=== PATIENT | female | born 1960 | race Caucasian/White ===

== ENCOUNTER → 2016-04-04 | Outpatient (CLI) | payer BC ==
[2016-04-04 09:23] VITALS: BMI 34.5
== END | disposition home or self-care (01) ==
LOC: MNTWWP 08:57
PROVIDERS: ATTEND Family Medicine
DX: Z71.3 Dietary counseling and surveillance (principal); R63.5 Abnormal weight gain

== ENCOUNTER → 2016-04-10 | Outpatient (CLI) | payer BC ==
--- NOTE | 2016-04-11 12:02 | MM ---
Reason for exam: screening (asymptomatic). Last mammogram was performed 1 year ago. History: Patient is postmenopausal. Family history of premenopausal breast cancer in maternal cousin at age 42 and breast cancer in maternal grandmother at age 60. Taking estrogen for 1 year 3 months beginning at age 48. Physical Findings: A clinical breast exam by your physician is recommended on an annual basis and results should be correlated with mammographic findings. MG Screening Mammo w CAD Bilateral CC and MLO view(s) were taken. Prior study comparison: April 02, 2015, bilateral MG screening mammo w CAD. February 11, 2014, bilateral MG screening mammo w CAD. January 22, 2013, bilateral digital screening mammo w/CAD. January 10, 2012, bilateral digital screening mammo w/CAD. There are scattered fibroglandular densities. No significant changes when compared with prior studies. ASSESSMENT: Negative, BI-RAD 1 RECOMMENDATION: Routine screening mammogram of both breasts in 1 year.
== END | disposition home or self-care (01) ==
LOC: RADMAMWWP 08:42
PROVIDERS: ATTEND Obstetrics & Gynecology
DX: Z12.31 Encounter for screening mammogram for malignant neoplasm of breast (principal)

== ENCOUNTER → 2016-09-13 | Outpatient (CLI) | payer BC ==
[2016-09-13 09:23] LABS: Basophils % (A) 1 %; CH 32.7; Eosinophils # (A) 0.1 k/uL (0-0.7); Eosinophils % (A) 2 %; HCT 45.8 % (34.0-46.0); HDW 2.58; HGB 15.7 gm/dL (11.4-16.0); Luc # (Auto) 0.15; Luc % (Auto) 2; Lymphocytes # (A) 2.5 k/uL (1.0-4.8); Lymphocytes % (A) 40 %; MCHC 34.2 g/dL (31.0-37.0); MCV 96.6 fL (80.0-100.0); Mean Platelet Volume 6.4; Monocytes # (A) 0.3 k/uL (0-1.0); Monocytes % (A) 5 %; Neutrophils # (A) 3.1 k/uL (1.3-7.7); Neutrophils % (A) 50 %; RBC 4.74 m/uL (3.80-5.40); RDW 12.1 % (11.5-15.5); WBC 6.2 k/uL (3.8-10.6); WBC (Perox) 6.12
[2016-09-13 09:30] LABS: ALT 64 U/L (9-52); AST 40 U/L (14-36); Alkaline Phosphatase 81 U/L (38-126); Anion Gap 10 mmol/L; Blood Urea Nitrogen 17 mg/dL (7-17); Carbon Dioxide 29 mmol/L (22-30); Chloride 104 mmol/L (98-107); Cholesterol 195 mg/dL (<200); Glucose 81 mg/dL (74-99); HDL Cholesterol 60 mg/dL (40-60); Non-African American GFR(MDRD) >60 (>60 ml/min/1.73 sqM); Potassium 4.7 mmol/L (3.5-5.1); Sodium 143 mmol/L (137-145); Total Bilirubin 0.7 mg/dL (0.2-1.3); Total Protein 7.4 g/dL (6.3-8.2)
== END | disposition home or self-care (01) ==
LOC: LABWHC1 08:50
PROVIDERS: ATTEND Family Medicine
DX: K57.32 Diverticulitis of large intestine without perforation or abscess without bleeding (principal); F33.41 Major depressive disorder, recurrent, in partial remission; Z68.35 Body mass index [BMI] 35.0-35.9, adult; S20.219A Contusion of unspecified front wall of thorax, initial encounter; Y99.9 Unspecified external cause status
CPT/HCPCS: 36415; 80053; 80061; 84439; 84443; 85025

== ENCOUNTER 2017-05-16 07:37 | Emergency (ER) | payer BC ==
--- NOTE | 2017-05-16 08:10 | ED ---
Extremity Problem HPI - General Chief complaint: Extremity Problem,Nontraumatic Stated complaint: poss blood clot left leg Time Seen by Provider: 05/16/17 07:52 Source: patient, RN notes reviewed Mode of arrival: ambulatory Limitations: no limitations - History of Present Illness Initial comments: 56-year-old female presents emergency Department chief complaint of left leg pain. Patient states that she had an ablation of her varicose veins at the beginning of April. Patient states that she started developing worsening pain in the middle April and was seen at [facility] in which states she was found to have an extensive DVT. Patient states that vascular surgeon Dr. Simpson removed the clot and placed a stent. Patient states she was placed in [facility] after this. She has an appointment with Dr. Salazar tomorrow and appointment with Dr. Lopez to be worked up for clotting disorders. Patient states that she went back to work yesterday and woke up with pain proximal to 5 hours ago that was unbearable and not alleviated with [place] to her lower leg. She states she has no paresthesias. Denies any discoloration other than the ecchymosis which has been present since her surgery. - Related Data Home Medications Medication Instructions Recorded Confirmed Cyclobenzaprine [Flexeril] 10 mg PO TID PRN 07/16/13 07/16/13 Ibuprofen [Motrin] 800 mg PO Q12HR PRN 07/16/13 07/16/13 LORazepam [Ativan] 0.5 mg PO TID PRN 07/16/13 07/16/13 Loratadine [Claritin] 10 mg PO DAILY 07/16/13 07/16/13 Previous Rx's Medication Instructions Recorded Cyclobenzaprine [Flexeril] 10 mg PO TID #20 tablet 07/16/13 Docusate [Colace] 100 mg PO DAILY #30 capsule 07/16/13 Hydrocodone/Acetaminophen 1 each PO Q4HR PRN #20 tablet 07/16/13 [Hydrocodone/Acetaminophen 5-325] Ibuprofen [Motrin] 800 mg PO Q6HR PRN #20 tab 10/18/15 Allergies Allergy/AdvReac Type Severity Reaction Status Date / Time loracarbef [From Lorabid] Allergy Anaphylaxis Verified 05/16/17 07:48 Penicillins Allergy Unknown Verified 05/16/17 07:48 shellfish derived Allergy Swelling Verified 05/16/17 07:48 Review of Systems ROS Statement: Those systems with pertinent positive or pertinent negative responses have been documented in the HPI. ROS Other: All systems not noted in ROS Statement are negative. Past Medical History Past Medical History: Deep Vein Thrombosis (DVT) Additional Past Medical History / Comment(s): back pain History of Any Multi-Drug Resistant Organisms: None Reported Past Surgical History: Back Surgery, Hysterectomy, Tonsillectomy Past Psychological History: No Psychological Hx Reported Smoking Status: Current some day smoker Past Alcohol Use History: Occasional Past Drug Use History: None Reported General Exam Limitations: no limitations General appearance: alert, in no apparent distress Head exam: Present: atraumatic, normocephalic, normal inspection Neck exam: Present: normal inspection. Absent: tenderness, meningismus, lymphadenopathy Respiratory exam: Present: normal lung sounds bilaterally. Absent: respiratory distress, wheezes, rales, rhonchi, stridor Cardiovascular Exam: Present: regular rate, normal rhythm, normal heart sounds. Absent: systolic murmur, diastolic murmur, rubs, gallop, clicks GI/Abdominal exam: Present: soft, normal bowel sounds. Absent: distended, tenderness, guarding, rebound, rigid Extremities exam: Present: other (Left lower extremity there is extensive ecchymosis which appears old from the knee to the foot there is tenderness to the mid calf to the ankle region and mild swelling noted no erythema no warmth there equal pedal pulses bilaterally) Skin exam: Present: warm, dry, intact, normal color. Absent: rash Course Vital Signs 05/16/17 07:41 Temperature 98.5 F Pulse Rate 88 Respiratory 18 Rate Blood Pressure 127/82 O2 Sat by Pulse 99 Oximetry Medical Decision Making - Medical Decision Making 56-year-old female presents from for left leg pain. Patient had recent surgery. Patient's ultrasound shows superficial thrombophlebitis. Patient is on WILL continue. Patient advised to elevate, depression stockings, warm compresses. Patient follow with Dr. Salazar tomorrow at her scheduled appointment. Patient had equal pulses and no concerns for arterial issues. Disposition Clinical Impression: Superficial thrombophlebitis of lower extremity Disposition: HOME SELF-CARE Condition: Stable Instructions: Superficial Thrombophlebitis (ED) Additional Instructions: Please return to the Emergency Department if symptoms worsen or any other concerns. Referrals: Iain Lima MD [Primary Care Provider] - 1-2 days Adams Salazar DO [Doctor of Osteopathic Medicine] - 1-2 days
--- NOTE | 2017-05-16 09:14 | US ---
EXAMINATION TYPE: US venous doppler duplex LE LT DATE OF EXAM: 05/16/2017 8:44 AM COMPARISON: None CLINICAL HISTORY: 56-year-old female with left leg pain, recent diagnosis of DVT left leg last week a t different facility SIDE PERFORMED: Left TECHNIQUE: The lower extremity deep venous system is examined utilizing real time linear array sonog luciana with graded compression, doppler sonography and color-flow sonography. FINDINGS: VESSELS IMAGED: External Iliac Vein (EIV) Common Femoral Vein Deep Femoral Vein Greater Saphenous Vein * Femoral Vein Popliteal Vein Small Saphenous Vein * Proximal Calf Veins (* superficial vessels) Left Leg: Thrombus within left GSV extending slightly into left CFV/ Thrombus also visualized within left small saph vein IMPRESSION: SVT involving the left greater saphenous vein and small saphenous vein. GSV thrombus minimally extend s into the left common femoral vein. Otherwise, no DVT seen from the groin to the upper calf.
[2017-05-16 09:51] VITALS: BP 151/85; PULSE 69; RESP 16; TEMP 98
== END 2017-05-16 09:50 | disposition home or self-care (01) ==
LOC: EC 07:37
DX: I80.02 Phlebitis and thrombophlebitis of superficial vessels of left lower extremity (principal); F17.200 Nicotine dependence, unspecified, uncomplicated; Z88.0 Allergy status to penicillin; Z88.1 Allergy status to other antibiotic agents; Z91.013 Allergy to seafood; Z79.01 Long term (current) use of anticoagulants; Z79.899 Other long term (current) drug therapy
CPT/HCPCS: 99283

== ENCOUNTER 2017-06-16 13:33 | Emergency (ER) | payer BC ==
[2017-06-16] MEDS ORDERED: HYDROcodone/APAP 5-325MG 1 EACH TAB PO STA (14:04)
--- NOTE | 2017-06-16 14:48 | ED ---
General Adult HPI - General Chief complaint: Extremity Problem,Nontraumatic Stated complaint: DVT L leg? Time Seen by Provider: 06/16/17 13:53 Source: patient, RN notes reviewed, old records reviewed Mode of arrival: wheelchair Limitations: no limitations - History of Present Illness Initial comments: This is a 56-year-old female to the ER for evaluation of left lower Shorty pain. Patient has positive history of DVT, history of blood clots, patient is on blood thinners taking it as directed. states she had blood clot evacuated about 2 months ago secondary to severe blood clot in left lower extremity. She also has stent placed in her femoral vein. Patient denies any other injury or trauma. She states she's had some stress being a today but has had increasing pain in her left leg since last night. No significant swelling. - Related Data Home Medications Medication Instructions Recorded Confirmed LORazepam [Ativan] 0.5 mg PO BID 07/16/13 06/16/17 Apixaban [Eliquis] 5 mg PO BID 05/16/17 06/16/17 Ascorbic Acid [Vitamin C] 500 mg PO HS 05/16/17 06/16/17 Biotin 5 mg PO HS 05/16/17 06/16/17 Clopidogrel [Plavix] 75 mg PO DAILY 05/16/17 06/16/17 Docusate [Colace] 200 mg PO HS 05/16/17 06/16/17 Hydrocodone/Acetaminophen 1 tab PO Q6H PRN 05/16/17 06/16/17 [Hydrocodone/Acetaminophen 5-325] Multivitamins, Thera [Multivitamin 1 tab PO HS 05/16/17 06/16/17 (formulary)] Psyllium Husk (with Sugar) 5 ml PO DAILY 05/16/17 06/16/17 [Metamucil Powder] Vitamin C/Biotin [Hair, Skin and 1 tab PO HS 05/16/17 06/16/17 Nails] buPROPion XL [Wellbutrin Xl] 150 mg PO BID 05/16/17 06/16/17 Allergies Allergy/AdvReac Type Severity Reaction Status Date / Time loracarbef [From Lorabid] Allergy Anaphylaxis Verified 06/16/17 13:57 Penicillins Allergy Unknown Verified 06/16/17 13:57 shellfish derived Allergy Swelling Verified 06/16/17 13:57 Review of Systems ROS Statement: Those systems with pertinent positive or pertinent negative responses have been documented in the HPI. ROS Other: All systems not noted in ROS Statement are negative. Past Medical History Past Medical History: Deep Vein Thrombosis (DVT) Additional Past Medical History / Comment(s): back pain History of Any Multi-Drug Resistant Organisms: None Reported Past Surgical History: Back Surgery, Hysterectomy, Tonsillectomy Past Psychological History: No Psychological Hx Reported Smoking Status: Current some day smoker Past Alcohol Use History: Occasional Past Drug Use History: None Reported General Exam Limitations: no limitations General appearance: alert, in no apparent distress Head exam: Present: atraumatic, normocephalic, normal inspection Eye exam: Present: normal appearance, PERRL, EOMI. Absent: scleral icterus, conjunctival injection, periorbital swelling ENT exam: Present: normal exam, mucous membranes moist Neck exam: Present: normal inspection. Absent: tenderness, meningismus, lymphadenopathy Respiratory exam: Present: normal lung sounds bilaterally. Absent: respiratory distress, wheezes, rales, rhonchi, stridor Cardiovascular Exam: Present: regular rate, normal rhythm, normal heart sounds. Absent: systolic murmur, diastolic murmur, rubs, gallop, clicks GI/Abdominal exam: Present: soft, normal bowel sounds. Absent: distended, tenderness, guarding, rebound, rigid Extremities exam: Present: normal inspection, full ROM, normal capillary refill. Absent: tenderness, pedal edema, joint swelling, calf tenderness Back exam: Present: normal inspection Neurological exam: Present: alert, oriented X3, CN II-XII intact Psychiatric exam: Present: normal affect, normal mood Skin exam: Present: warm, dry, intact, normal color. Absent: rash Course Vital Signs 06/16/17 13:54 Temperature 97.0 F L Pulse Rate 90 Respiratory 18 Rate Blood Pressure 121/67 O2 Sat by Pulse 96 Oximetry - Reevaluation(s) Reevaluation #1: 06/16/17 14:48 Medical records reviewed, pain is more improved Medical Decision Making - Medical Decision Making 56 female the ER with left lower Shorty pain. Patient has positive left leg pain, negative for DVT, patient encouraged to continue blood thinners and will be discharged home - Radiology Data Radiology results: report reviewed (Ultrasound negative for DVT), image reviewed Disposition Clinical Impression: Left leg pain Disposition: HOME SELF-CARE Condition: Good Instructions: Leg Pain (ED) Is patient prescribed a controlled substance at d/c from ED?: No Referrals: Iain Lima MD [Primary Care Provider] - 1-2 days
--- NOTE | 2017-06-16 15:24 | US ---
EXAMINATION TYPE: US venous doppler duplex LE LT DATE OF EXAM: 06/16/2017 2:52 PM COMPARISON: NONE CLINICAL HISTORY: pain. Had chronic blood clot removed from left leg per pt with stent placed last mo nth. Pt currently has stent still per pt and taking 2 blood thinners. SIDE PERFORMED: Left TECHNIQUE: The lower extremity deep venous system is examined utilizing real time linear array sonog luciana with graded compression, doppler sonography and color-flow sonography. VESSELS IMAGED: External Iliac Vein (EIV) Common Femoral Vein Deep Femoral Vein Greater Saphenous Vein * Femoral Vein Popliteal Vein Small Saphenous Vein * Proximal Calf Veins (* superficial vessels) Grayscale, color doppler, spectral doppler imaging performed of the deep veins of the lower extremity . There is normal flow, compressibility, vascular waveforms. IMPRESSION: Left Leg: Negative for DVT
[2017-06-16] MEDS ORDERED: RX INFO: IV CONTRAST WAS GIVEN 1 EACH MISC MISCELLANE PRN (15:33)
[2017-06-16] MEDS ORDERED: SODIUM CHLORIDE 0.9% 1,000 ML IV STA (15:33)
[2017-06-16] MEDS ORDERED: MORPHINE SULFATE 4 MG/ML SYRINGE IV STA (15:33)
[2017-06-16 16:00] LABS: Appearance,Urine Clear (Clear); Bilirubin,Urine Negative (Negative); Blood,Urine Negative (Negative); Color,Urine Yellow; Glucose,Urine (UA) Negative (Negative); Ketones,Urine Negative (Negative); Leukocyte Esterase,Urine Negative (Negative); Nitrite,Urine Negative (Negative); PH, Urine 5.5 (5.0-8.0); Protein,Urine Negative (Negative); Specific Gravity,Urine 1.012 (1.001-1.035); Urobilinogen,Urine <2.0 mg/dL (<2.0)
[2017-06-16 16:01] LABS: Basophils % (A) 0 %; Eosinophils # (A) 0.1 k/uL (0-0.7); Eosinophils % (A) 1 %; HCT 43.1 % (34.0-46.0); HGB 14.4 gm/dL (11.4-16.0); Lymphocytes % (A) 31 %; MCH 31.4 pg (25.0-35.0); MCHC 33.4 g/dL (31.0-37.0); MCV 93.9 fL (80.0-100.0); Mean Platelet Volume 6.5; Monocytes # (A) 0.4 k/uL (0-1.0); Monocytes % (A) 6 %; Neutrophils # (A) 3.9 k/uL (1.3-7.7); Neutrophils % (A) 61 %; Platelet Count 354 k/uL (150-450); RBC 4.59 m/uL (3.80-5.40); RDW 12.3 % (11.5-15.5); WBC 6.4 k/uL (3.8-10.6)
[2017-06-16 16:18] LABS: Albumin 4.4 g/dL (3.5-5.0); Calcium 9.5 mg/dL (8.4-10.2); Potassium 3.7 mmol/L (3.5-5.1); Total Bilirubin 0.4 mg/dL (0.2-1.3); Total Protein 6.9 g/dL (6.3-8.2)
--- NOTE | 2017-06-16 17:19 | CT ---
EXAMINATION TYPE: CT abdomen pelvis w con DATE OF EXAM: 06/16/2017 COMPARISON: NONE HISTORY: abdominal pain CONTRAST: 100ml/mnd319 FINDINGS: LUNG BASES-: No visible nodule. No infiltrate. LIVER/GB: No calcified gallstones. No space occupying hepatic lesion. Biliary tree is of normal ca liber. PANCREAS: No inflammation. No distinct mass. SPLEEN: No splenic enlargement. No lesion seen. ADRENALS: No nodule. No thickening. KIDNEYS/BLADDER: No hydronephrosis. No nephrolithiasis. No distinct renal mass. Urinary bladder g rossly unremarkable. BOWEL: Normal appendix. Normal bowel caliber. No inflammation. Sigmoid diverticulosis without diver ticulitis. GENITAL ORGANS: Hysterectomy changes noted. No evidence for ovarian mass. LYMPH NODES: No greater than 1cm abdominal or pelvic lymph nodes are appreciated. AORTA: No significant abnormality. OSSEOUS STRUCTURES: Postoperative changes lumbar spine. OTHER: Left common iliac vein stent. IMPRESSION: 1. No acute findings to account for the patient's symptoms.
[2017-06-16 17:45] VITALS: BP 128/67; PULSE 80; RESP 20; TEMP 97.5
== END 2017-06-16 17:46 | disposition home or self-care (01) ==
LOC: EC 13:33
DX: M79.605 Pain in left leg (principal); F17.200 Nicotine dependence, unspecified, uncomplicated; Z79.01 Long term (current) use of anticoagulants; Z79.02 Long term (current) use of antithrombotics/antiplatelets; Z79.899 Other long term (current) drug therapy; Z88.0 Allergy status to penicillin; Z88.1 Allergy status to other antibiotic agents; Z91.013 Allergy to seafood; Z86.718 Personal history of other venous thrombosis and embolism; Z87.39 Personal history of other diseases of the musculoskeletal system and connective tissue; Z95.820 Peripheral vascular angioplasty status with implants and grafts; Z98.890 Other specified postprocedural states
CPT/HCPCS: 36415; 80053; 82150; 83605; 83690; 85025; 81003; 87086; 93971; 74177; 99284; J2270; Q9967

== ENCOUNTER → 2017-07-25 | Outpatient (CLI) | payer BC ==
--- NOTE | 2017-07-27 10:48 | MM ---
Reason for exam: screening (asymptomatic). Last mammogram was performed 1 year and 3 months ago. History: Patient is postmenopausal. Family history of premenopausal breast cancer in maternal cousin at age 42 and breast cancer in maternal grandmother at age 60. Taking estrogen for 1 year 3 months beginning at age 48. Physical Findings: A clinical breast exam by your physician is recommended on an annual basis and results should be correlated with mammographic findings. MG Screening Mammo w CAD Bilateral CC and MLO view(s) were taken. Prior study comparison: April 10, 2016, bilateral MG screening mammo w CAD. April 02, 2015, bilateral MG screening mammo w CAD. The breast tissue is heterogeneously dense. This may lower the sensitivity of mammography. No suspicious abnormality. No significant changes when compared with prior studies. ASSESSMENT: Negative, BI-RAD 1 RECOMMENDATION: Routine screening mammogram of both breasts in 1 year.
== END | disposition home or self-care (01) ==
LOC: RADMAMWWP 16:24
PROVIDERS: ATTEND Obstetrics & Gynecology
DX: Z12.31 Encounter for screening mammogram for malignant neoplasm of breast (principal); Z80.3 Family history of malignant neoplasm of breast
CPT/HCPCS: 77067

== ENCOUNTER → 2017-10-24 | Outpatient (CLI) | payer BC | END | disposition home or self-care (01) | LOC: LABWHC1 10:31 | PROVIDERS: ATTEND Otolaryngology | DX: J30.89 Other allergic rhinitis (principal) | CPT/HCPCS: 36415 ==

== ENCOUNTER 2018-06-17 09:20 | Emergency (ER) | payer BC ==
[2018-06-17] MEDS ORDERED: SODIUM CHLORIDE 0.9% 1,000 ML IV STA (09:45)
[2018-06-17] MEDS ORDERED: DIPHENOX-ATROP 2.5-0.025 MG 1 EACH TAB PO STA (09:45)
[2018-06-17] MEDS ORDERED: ONDANSETRON 4 MG/2 ML VIAL IVP STA (09:45)
--- NOTE | 2018-06-17 09:52 | ED ---
General Adult HPI - General Chief complaint: Nausea/Vomiting/Diarrhea Stated complaint: dehydrated Time Seen by Provider: 06/17/18 09:30 Source: patient, RN notes reviewed Mode of arrival: ambulatory Limitations: no limitations - History of Present Illness Initial comments: This a 57-year-old female presents emergency Department complaining that she has been having nausea vomiting diarrhea since Sunday. Patient states she hasn't vomited since Sunday night but she continues to have diarrhea. Patient states she feels that she is dehydrated. Patient states she was able to drink fluids however. Patient states she has occasional abdominal cramping but has no abdominal pain currently. Patient states she's felt hot but does not feel hot currently. Patient denies any dysuria hematuria urinary frequency. Patient denies any back pain. Patient denies any chest pain difficulty breathing shortness of breath. - Related Data Home Medications Medication Instructions Recorded Confirmed LORazepam [Ativan] 0.5 mg PO BID PRN 07/16/13 06/17/18 Ascorbic Acid [Vitamin C] 500 mg PO HS 05/16/17 06/17/18 Biotin 5 mg PO HS 05/16/17 06/17/18 Docusate [Colace] 200 mg PO HS 05/16/17 06/17/18 Multivitamins, Thera [Multivitamin 1 tab PO HS 05/16/17 06/17/18 (formulary)] Psyllium Husk (with Sugar) 5 ml PO DAILY 05/16/17 06/17/18 [Metamucil Powder] Vitamin C/Biotin [Hair, Skin and 1 tab PO HS 05/16/17 06/17/18 Nails] buPROPion XL [Wellbutrin Xl] 150 mg PO BID 05/16/17 06/17/18 Aspirin EC [Ecotrin] 325 mg PO DAILY 06/17/18 06/17/18 Fexofenadine/Pseudoephedrine 1 tab PO DAILY 06/17/18 06/17/18 [Vee-D 24 Hour Tablet] Folic Acid 1 mg PO DAILY 06/17/18 06/17/18 Vitamin B Complex 1 cap PO DAILY 06/17/18 06/17/18 Allergies Allergy/AdvReac Type Severity Reaction Status Date / Time Iodinated Contrast- Oral and Allergy Unknown Verified 06/17/18 09:54 IV Dye loracarbef [From Lorabid] Allergy Anaphylaxis Verified 06/17/18 09:54 Penicillins Allergy Unknown Verified 06/17/18 09:54 shellfish derived Allergy Swelling Verified 06/17/18 09:54 Review of Systems ROS Statement: Those systems with pertinent positive or pertinent negative responses have been documented in the HPI. ROS Other: All systems not noted in ROS Statement are negative. Past Medical History Past Medical History: Deep Vein Thrombosis (DVT) Additional Past Medical History / Comment(s): back pain History of Any Multi-Drug Resistant Organisms: None Reported Past Surgical History: Back Surgery, Hysterectomy, Tonsillectomy Past Psychological History: No Psychological Hx Reported Smoking Status: Current some day smoker Past Alcohol Use History: Occasional Past Drug Use History: None Reported General Exam - General Exam Comments Initial Comments: GENERAL: Patient is well-developed and well-nourished. Patient is nontoxic and well- hydrated and is in mild distress. ENT: Neck is soft and supple. No significant lymphadenopathy is noted. Oropharynx is clear. Moist mucous membranes. Neck has full range of motion without eliciting any pain. EYES: The sclera were anicteric and conjunctiva were pink and moist. Extraocular movements were intact and pupils were equal round and reactive to light. Eyelids were unremarkable. PULMONARY: Unlabored respirations. Good breath sounds bilaterally. No audible rales rhonchi or wheezing was noted. CARDIOVASCULAR: There is a regular rate and rhythm without any murmurs gallops or rubs. ABDOMEN: Soft and nontender with normal bowel sounds. No palpable organomegaly was noted. There is no palpable pulsatile mass. SKIN: Skin is clear with no lesions or rashes and otherwise unremarkable. NEUROLOGIC: Patient is alert and oriented x3. Cranial nerves II through XII are grossly intact. Motor and sensory are also intact. Normal speech, volume and content. Symmetrical smile. MUSCULOSKELETAL: Normal extremities with adequate strength and full range of motion. LYMPHATICS: No significant lymphadenopathy is noted PSYCHIATRIC: Normal psychiatric evaluation. Limitations: no limitations Course Vital Signs 06/17/18 09:30 Temperature 97.5 F L Pulse Rate 76 Respiratory 16 Rate Blood Pressure 146/85 O2 Sat by Pulse 96 Oximetry Medical Decision Making - Medical Decision Making I will begin to reevaluate the patient she stated she felt considerably better and was no longer nauseated. - Lab Data Result diagrams: 06/17/18 10:21 06/17/18 10:21 Lab Results 06/17/18 06/17/18 Range/Units 10:21 10:21 WBC 4.8 (3.8-10.6) k/uL RBC 4.27 (3.80-5.40) m/uL Hgb 13.8 (11.4-16.0) gm/dL Hct 40.2 (34.0-46.0) % MCV 94.1 (80.0-100.0) fL MCH 32.4 (25.0-35.0) pg MCHC 34.4 (31.0-37.0) g/dL RDW 13.3 (11.5-15.5) % Plt Count 318 (150-450) k/uL Neutrophils % 60 % Lymphocytes % 30 % Monocytes % 5 % Eosinophils % 2 % Basophils % 1 % Neutrophils # 2.9 (1.3-7.7) k/uL Lymphocytes # 1.5 (1.0-4.8) k/uL Monocytes # 0.3 (0-1.0) k/uL Eosinophils # 0.1 (0-0.7) k/uL Basophils # 0.0 (0-0.2) k/uL Sodium 141 (137-145) mmol/L Potassium 4.2 (3.5-5.1) mmol/L Chloride 108 H (98-107) mmol/L Carbon Dioxide 26 (22-30) mmol/L Anion Gap 7 mmol/L BUN 18 H (7-17) mg/dL Creatinine 0.71 (0.52-1.04) mg/dL Est GFR (CKD-EPI)AfAm >90 (>60 ml/min/1.73 sqM) Est GFR (CKD-EPI)NonAf >90 (>60 ml/min/1.73 sqM) Glucose 95 (74-99) mg/dL Calcium 9.3 (8.4-10.2) mg/dL Total Bilirubin 0.4 (0.2-1.3) mg/dL AST 25 (14-36) U/L ALT 37 (9-52) U/L Alkaline Phosphatase 61 (38-126) U/L Total Protein 6.2 L (6.3-8.2) g/dL Albumin 3.8 (3.5-5.0) g/dL Amylase 81 (30-110) U/L Lipase 317 H (23-300) U/L Disposition Clinical Impression: Gastroenteritis, Dehydration Disposition: HOME SELF-CARE Condition: Good Instructions (If sedation given, give patient instructions): Gastroenteritis (ED) Additional Instructions: Patient should take Lomotil only if she continues to have diarrhea. Take Zofran every 6 hours when necessary for nausea Is patient prescribed a controlled substance at d/c from ED?: No Referrals: None,Stated [REFERRING] - 1-2 days Time of Disposition: 12:03
[2018-06-17 10:33] LABS: Basophils % (A) 1 %; Eosinophils # (A) 0.1 k/uL (0-0.7); Eosinophils % (A) 2 %; HCT 40.2 % (34.0-46.0); HGB 13.8 gm/dL (11.4-16.0); Lymphocytes # (A) 1.5 k/uL (1.0-4.8); Lymphocytes % (A) 30 %; MCH 32.4 pg (25.0-35.0); MCHC 34.4 g/dL (31.0-37.0); MCV 94.1 fL (80.0-100.0); Mean Platelet Volume 6.9; Monocytes # (A) 0.3 k/uL (0-1.0); Monocytes % (A) 5 %; Neutrophils # (A) 2.9 k/uL (1.3-7.7); Neutrophils % (A) 60 %; Platelet Count 318 k/uL (150-450); RBC 4.27 m/uL (3.80-5.40); RDW 13.3 % (11.5-15.5); WBC 4.8 k/uL (3.8-10.6)
[2018-06-17 10:42] LABS: ALT 37 U/L (9-52); AST 25 U/L (14-36); Albumin 3.8 g/dL (3.5-5.0); Alkaline Phosphatase 61 U/L (38-126); Amylase 81 U/L (30-110); Anion Gap 7 mmol/L; Blood Urea Nitrogen 18 mg/dL (7-17); Calcium 9.3 mg/dL (8.4-10.2); Carbon Dioxide 26 mmol/L (22-30); Chloride 108 mmol/L (98-107); Glucose 95 mg/dL (74-99); Lipase 317 U/L (23-300); Potassium 4.2 mmol/L (3.5-5.1); Sodium 141 mmol/L (137-145); Total Bilirubin 0.4 mg/dL (0.2-1.3); Total Protein 6.2 g/dL (6.3-8.2)
[2018-06-17] MEDS ORDERED: DIPHENOX-ATROP STARTER PACK 8 TAB BTL PO STA (12:04)
[2018-06-17] MEDS ORDERED: ONDANSETRON 4 MG ODT STARTER PACK 2 TAB BTL PO STA (12:04)
[2018-06-17 12:38] VITALS: BP 135/84; PULSE 60; RESP 18; TEMP 97.4
== END 2018-06-17 12:37 | disposition home or self-care (01) ==
LOC: EC 09:20
DX: K52.9 Noninfective gastroenteritis and colitis, unspecified (principal); E86.0 Dehydration; F17.200 Nicotine dependence, unspecified, uncomplicated; Z79.82 Long term (current) use of aspirin; Z79.899 Other long term (current) drug therapy; Z88.0 Allergy status to penicillin; Z91.013 Allergy to seafood; Z88.8 Allergy status to other drugs, medicaments and biological substances; Z91.041 Radiographic dye allergy status; Z86.718 Personal history of other venous thrombosis and embolism; Z90.710 Acquired absence of both cervix and uterus
CPT/HCPCS: 36415; 80053; 82150; 83690; 85025; 99284; 96374; 96361 ×2; J2405; S0119

== ENCOUNTER → 2018-07-30 | Outpatient (CLI) | payer BC ==
--- NOTE | 2018-07-30 11:50 | MM ---
Reason for exam: screening (asymptomatic). Last mammogram was performed 1 year ago. History: Patient is postmenopausal. Family history of premenopausal breast cancer in maternal cousin at age 42, breast cancer in sister at age 61, and breast cancer in maternal grandmother at age 60. Took estrogen for 1 year 3 months beginning at age 48. Physical Findings: A clinical breast exam by your physician is recommended on an annual basis and results should be correlated with mammographic findings. MG Screening Mammo w CAD Bilateral CC, MLO, and XCCL view(s) were taken. Prior study comparison: July 25, 2017, bilateral MG screening mammo w CAD. April 10, 2016, bilateral MG screening mammo w CAD. There are scattered fibroglandular densities. There are benign appearing round calcifications bilaterally. There is chronic nodularity in the right breast. There is no discrete abnormality. ASSESSMENT: Benign, BI-RAD 2 RECOMMENDATION: Routine screening mammogram of both breasts in 1 year.
== END | disposition home or self-care (01) ==
LOC: RADMAMWWP 09:00
PROVIDERS: ATTEND Obstetrics & Gynecology
DX: Z12.31 Encounter for screening mammogram for malignant neoplasm of breast (principal)
CPT/HCPCS: 77067

== ENCOUNTER 2018-10-03 09:18 | Emergency (ER) | payer BC ==
[2018-10-03 09:22] VITALS: TEMP 97.2
[2018-10-03] MEDS ORDERED: methylPREDNISolone SOD SUCCI 125 MG/2 ML VIAL IV STA (09:52)
[2018-10-03] MEDS ORDERED: FAMOTIDINE 20 MG/2 ML VIAL IV STA (09:52)
[2018-10-03] MEDS ORDERED: diphenhydrAMINE 50 MG/ML 1 ML VIAL IVP STA (09:52)
[2018-10-03 09:53] LABS: Basophils % (A) 0 %; Eosinophils # (A) 0.2 k/uL (0-0.7); Eosinophils % (A) 2 %; HCT 44.1 % (34.0-46.0); HGB 14.9 gm/dL (11.4-16.0); Lymphocytes # (A) 1.8 k/uL (1.0-4.8); Lymphocytes % (A) 24 %; MCHC 33.7 g/dL (31.0-37.0); MCV 94.9 fL (80.0-100.0); Mean Platelet Volume 6.2; Monocytes # (A) 0.5 k/uL (0-1.0); Monocytes % (A) 7 %; Neutrophils % (A) 65 %; Platelet Count 383 k/uL (150-450); RBC 4.65 m/uL (3.80-5.40); RDW 12.5 % (11.5-15.5); WBC 7.6 k/uL (3.8-10.6)
[2018-10-03 09:58] LABS: Appearance,Urine Clear (Clear); Bilirubin,Urine Negative (Negative); Blood,Urine Negative (Negative); Color,Urine Light Yellow; Glucose,Urine (UA) Negative (Negative); Ketones,Urine Negative (Negative); Leukocyte Esterase,Urine Negative (Negative); Nitrite,Urine Negative (Negative); Protein,Urine Negative (Negative); Specific Gravity,Urine 1.005 (1.001-1.035); Urobilinogen,Urine <2.0 mg/dL (<2.0)
[2018-10-03 10:09] LABS: Albumin 4.4 g/dL (3.5-5.0); Calcium 9.7 mg/dL (8.4-10.2); Potassium 4.1 mmol/L (3.5-5.1); Total Bilirubin 0.7 mg/dL (0.2-1.3); Total Protein 7.1 g/dL (6.3-8.2)
--- NOTE | 2018-10-03 10:55 | CT ---
EXAMINATION TYPE: CT abdomen pelvis w con DATE OF EXAM: 10/03/2018 COMPARISON: Prior CT 06/16/2017 HISTORY: Pain CT DLP: 1962.5 mGycm Automated exposure control for dose reduction was used. TECHNIQUE: Helical acquisition of images from the lung bases through the pelvis have been completed. CONTRAST: Performed without Oral Contrast and with IV Contrast, patient injected with 100 mL of Isovue 300. FINDINGS: Left common iliac vein stent is in place. LUNG BASES: No significant abnormality is appreciated. AORTA: No significant abnormality is appreciated. LIVER/GB: No significant abnormality is appreciated. PANCREAS: No significant abnormality is seen. SPLEEN: No significant abnormality is seen. ADRENALS: No significant abnormality is seen. KIDNEYS: No significant abnormality is seen. REPRODUCTIVE ORGANS: Not seen BOWEL: There is extensive diverticular change in the colon, inflammatory changes present adjacent to the sigmoid colon in the left lower quadrant, there is increased attenuation within the mesenteric f at at this level with some focal bowel thickening. FREE AIR: No Free Air visible. ASCITES: None visible. PELVIC ADENOPATHY: None visualized. RETROPERITONEAL ADENOPATHY: No Retroperitoneal Adenopathy visible. URINARY BLADDER: No significant abnormality is seen. OSSEOUS STRUCTURES: Postop changes are again noted status post lumbosacral fusion, there is a spinal curvature as on prior.. IMPRESSION: DIVERTICULITIS. FOLLOW-UP RECOMMENDED.
--- NOTE | 2018-10-03 11:02 | ED ---
Abdominal Pain HPI - General Chief Complaint: Abdominal Pain Stated Complaint: Abd Pain Time Seen by Provider: 10/03/18 09:23 Source: patient Mode of arrival: ambulatory Limitations: no limitations - History of Present Illness Initial Comments: 8-year-old female presenting today for chief complaint of possible diverticulitis. Patient states she has history of diverticulitis. She states that she began developing symptoms about 3 weeks ago. Pain in the left lower quadrant. Patient states her come and go however has been persistent for the past week. She started taking Cipro she had at home last Sunday and was provided perception for Flagyl on Sunday. Patient states she did not want to take the prescription as Flagyl does not make her feel well. Patient states that the pain seemed to increase this morning and she was concerned that there is a comfort patient presents emergency department for further evaluation. Patient denies fever states she has had chills. Patinet denies back pain, nausea, vomiting, bloody stools, upper abdominal pain, chest pain, SOB. Remaining ROS (-). - Related Data Home Medications Medication Instructions Recorded Confirmed Ascorbic Acid [Vitamin C] 500 mg PO HS 05/16/17 10/03/18 Docusate [Colace] 200 mg PO HS 05/16/17 10/03/18 Multivitamins, Thera [Multivitamin 1 tab PO HS 05/16/17 10/03/18 (formulary)] Psyllium Husk (with Sugar) 5 ml PO DAILY 05/16/17 10/03/18 [Metamucil Powder] Vitamin C/Biotin [Hair, Skin and 1 tab PO HS 05/16/17 10/03/18 Nails] buPROPion XL [Wellbutrin Xl] 150 mg PO BID 05/16/17 10/03/18 Aspirin EC [Ecotrin] 325 mg PO DAILY 06/17/18 10/03/18 Fexofenadine/Pseudoephedrine 1 tab PO DAILY 06/17/18 10/03/18 [Vee-D 24 Hour Tablet] Folic Acid 1 mg PO DAILY 06/17/18 10/03/18 Vitamin B Complex 1 cap PO DAILY 06/17/18 10/03/18 LORazepam [Ativan] 1 mg PO DAILY PRN 10/03/18 10/03/18 Levofloxacin [Levaquin] 500 mg PO DAILY 10/03/18 10/03/18 Previous Rx's Medication Instructions Recorded Sulfamethox-Tmp 800-160Mg [Bactrim 1 tab PO Q12HR 10 Days #20 tab 10/03/18 DS 800-160 mg] metroNIDAZOLE [Flagyl] 500 mg PO Q8HR 10 Days #30 tab 10/03/18 Allergies Allergy/AdvReac Type Severity Reaction Status Date / Time Iodinated Contrast- Oral and Allergy Unknown Verified 10/03/18 09:30 IV Dye loracarbef [From Lorabid] Allergy Anaphylaxis Verified 10/03/18 09:30 Penicillins Allergy Unknown Verified 10/03/18 09:30 shellfish derived Allergy Swelling Verified 10/03/18 09:30 Review of Systems ROS Statement: Those systems with pertinent positive or pertinent negative responses have been documented in the HPI. ROS Other: All systems not noted in ROS Statement are negative. Past Medical History Past Medical History: Deep Vein Thrombosis (DVT) Additional Past Medical History / Comment(s): back pain, diverticulitis History of Any Multi-Drug Resistant Organisms: None Reported Past Surgical History: Back Surgery, Hysterectomy, Tonsillectomy Past Psychological History: No Psychological Hx Reported Smoking Status: Former smoker Past Alcohol Use History: Occasional Past Drug Use History: None Reported General Exam - General Exam Comments Initial Comments: General: The patient is awake and alert, in no distress, and does not appear acutely ill. Eye: +3 mm pupils are equal, round and reactive to light, extra-ocular movements are intact. No nystagmus. There is normal conjunctiva bilaterally. No signs of icterus. Ears, nose, mouth and throat: There are moist mucous membranes and no oral lesions. Neck: The neck is supple, there is no tenderness or JVD. Cardiovascular: There is a regular rate and rhythm. No murmur, rub or gallop is appreciated. Respiratory: Lungs are clear to auscultation, respirations are non-labored, br eath sounds are equal. No wheezes, stridor, rales, or rhonchi. Gastrointestinal: Soft, non-distended, abdomen in tendern to palpation of the left lower quadrant, the abdomen is without masses or organomegaly noted. There is no rebound or guarding present. Bowel sounds are unremarkable. Musculoskeletal: Normal ROM, no tenderness. Strength 5/5. Sensation intact. Pulses equal bilaterally 2+. Neurological: A&O x 3. CN II-XII intact grossly, There are no obvious motor or sensory deficits. Coordination appears grossly intact. Speech is normal. Skin: Skin is warm and dry and no rashes or lesions are noted. Psychiatric: Cooperative, appropriate mood & affect, normal judgment. Limitations: no limitations Course Vital Signs 10/03/18 10/03/18 09:20 11:38 Temperature 97.2 F L Pulse Rate 83 82 Respiratory 18 16 Rate Blood Pressure 128/84 129/81 O2 Sat by Pulse 99 96 Oximetry Medical Decision Making - Medical Decision Making 58-year-old female presenting for abdominal pain left lower quadrant history diverticulitis. Patient on Cipro refuses to take Flagyl. Patient has penicillin ALLERGY she believes this is anaphylaxis. CT revealed a non- complicated diverticulitis or abscess and no pneumoperitoneum. Patient has left lower quadrant tenderness dominance and no rebound tenderness no guarding no she'll jar. Does not appear peritoneal. Patient appears well nontoxic. Patient is afebrile leukocytosis. no electrolyte derangements. at this time i feel patient is stable for discharge with treatment of diverticulitis with both bactrim and metronidazole. i discussed the importance of dental therapy. candace mosqueda verbalized understanding. she states she will be compliant with the flagyl. I discussed the importance of follow-up and return parameters especially for increasing pain as as risk of perforation with diverticulitis or small ABSCESS patient verbalized understanding patient was discharged appearing well patient is told to discontinue ciprofloxacin given the black box warning. I discussed the case maintained by Dr. Solorio prior to discharge patient. - Lab Data Result diagrams: 10/03/18 09:30 10/03/18 09:30 Lab Results 10/03/18 10/03/18 10/03/18 Range/Units 09:30 09:30 09:30 WBC 7.6 (3.8-10.6) k/uL RBC 4.65 (3.80-5.40) m/uL Hgb 14.9 (11.4-16.0) gm/dL Hct 44.1 (34.0-46.0) % MCV 94.9 (80.0-100.0) fL MCH 32.0 (25.0-35.0) pg MCHC 33.7 (31.0-37.0) g/dL RDW 12.5 (11.5-15.5) % Plt Count 383 (150-450) k/uL Neutrophils % 65 % Lymphocytes % 24 % Monocytes % 7 % Eosinophils % 2 % Basophils % 0 % Neutrophils # 5.0 (1.3-7.7) k/uL Lymphocytes # 1.8 (1.0-4.8) k/uL Monocytes # 0.5 (0-1.0) k/uL Eosinophils # 0.2 (0-0.7) k/uL Basophils # 0.0 (0-0.2) k/uL Sodium 141 (137-145) mmol/L Potassium 4.1 (3.5-5.1) mmol/L Chloride 104 (98-107) mmol/L Carbon Dioxide 27 (22-30) mmol/L Anion Gap 10 mmol/L BUN 13 (7-17) mg/dL Creatinine 0.92 (0.52-1.04) mg/dL Est GFR (CKD-EPI)AfAm 80 (>60 ml/min/1.73 sqM) Est GFR (CKD-EPI)NonAf 69 (>60 ml/min/1.73 sqM) Glucose 90 (74-99) mg/dL Calcium 9.7 (8.4-10.2) mg/dL Total Bilirubin 0.7 (0.2-1.3) mg/dL AST 25 (14-36) U/L ALT 34 (9-52) U/L Alkaline Phosphatase 93 (38-126) U/L Total Protein 7.1 (6.3-8.2) g/dL Albumin 4.4 (3.5-5.0) g/dL Urine Color Light Yellow Urine Appearance Clear (Clear) Urine pH 7.0 (5.0-8.0) Ur Specific Pepin 1.005 (1.001-1.035) Urine Protein Negative (Negative) Urine Glucose (UA) Negative (Negative) Urine Ketones Negative (Negative) Urine Blood Negative (Negative) Urine Nitrite Negative (Negative) Urine Bilirubin Negative (Negative) Urine Urobilinogen <2.0 (<2.0) mg/dL Ur Leukocyte Esterase Negative (Negative) Disposition Clinical Impression: Diverticulitis, Abdominal pain Disposition: HOME SELF-CARE Condition: Good Instructions (If sedation given, give patient instructions): Diverticulitis (ED) Additional Instructions: Please use medication as discussed. Please follow-up with family doctor in the next 2 days, as well as gastroenterology. Please return to emergency room if the symptoms increase or worsen or for any other concerns. Prescriptions: Sulfamethox-Tmp 800-160Mg [Bactrim DS 800-160 mg] 1 tab PO Q12HR 10 Days #20 tab metroNIDAZOLE [Flagyl] 500 mg PO Q8HR 10 Days #30 tab Is patient prescribed a controlled substance at d/c from ED?: No Referrals: Iain Lima MD [Primary Care Provider] - 1-2 days Bailee Dueñas MD [STAFF PHYSICIAN] - 1-2 days Time of Disposition: 11:18
[2018-10-03 11:38] VITALS: BP 129/81; PULSE 82; RESP 16
== END 2018-10-03 11:39 | disposition home or self-care (01) ==
LOC: EC 09:18
DX: K57.32 Diverticulitis of large intestine without perforation or abscess without bleeding (principal); D72.829 Elevated white blood cell count, unspecified; Z79.82 Long term (current) use of aspirin; Z79.899 Other long term (current) drug therapy; Z88.0 Allergy status to penicillin; Z88.1 Allergy status to other antibiotic agents; Z91.041 Radiographic dye allergy status; Z91.013 Allergy to seafood; Z53.29 Procedure and treatment not carried out because of patient's decision for other reasons; Z87.891 Personal history of nicotine dependence
CPT/HCPCS: 36415; 80053; 85025; 81003; 74177; 96374; 96375 ×2; 99284; J1200; J2930; Q9967

== ENCOUNTER 2018-12-10 09:19 | Day surgery (SDC) | payer BC ==
[2018-12-06 12:42] VITALS: BMI 34.0
[~2018-12-10 09:19] MED LIST: LACTATED RINGERS 1,000 ML IV SCH; LIDOCAINE 1% 20 ML VIAL (10MG/ML) FOR IV START INTRADERMA PRN
[2018-12-10 09:51] VITALS: RESP 20; TEMP 97.8
[2018-12-10] MEDS ORDERED: PROPOFOL 10 MG/ML 20 ML VIAL IV ONE (09:52)
--- NOTE | 2018-12-10 10:24 | P.PCN ---
Date of Procedure: 12/10/18 Description of Procedure: BRIEF HISTORY: Patient is a 58-year-old pleasant female scheduled for an elective colonoscopy as a part of follow-up after recent episode of diverticulitis of the sigmoid colon. Patient said multiple episodes previously and was treated approximate 2 months ago with antibiotic therapy for sigmoid diverticulitis. Last colonoscopy was in 2016 per recollection. No family history of colon cancer PROCEDURE PERFORMED: Colonoscopy with polypectomy. PREOPERATIVE DIAGNOSIS: Diverticulitis. ESTIMATED BLOOD LOSS: Minimal. IV sedation per Anesthesia. PROCEDURE: After informed consent was obtained, the patient, was brought into the endoscopy unit. IV sedation was administered by Anesthesia under continuous monitoring. Digital rectal examination was normal. Initially the Olympus CF-190 flexible video colonoscope was then inserted in the rectum, gradually advanced into the cecum without any difficulty. Careful examination was performed as the scope was gradually being withdrawn. Ileocecal valve and the appendiceal orifice were visualized and appeared normal. Prep was excellent. Mucosa of the cecum, ascending colon, transverse colon, descending colon, sigmoid colon, and rectum appeared normal. The patient had numerous small and large diverticula seen t hroughout the colon, with numerous in the sigmoid colon. 2 diminutive polyps one measuring 1 mm in size from the descending colon and one measuring 2 mm in size from the ascending colon were removed cold forcep polypectomy. Retroflexion was performed in the rectum and no lesions were seen. The patient tolerated the procedure well. IMPRESSION: Normal-appearing colon from rectum to cecum. Potts diverticulosis. 2 diminutive polyps removed with cold forceps polypectomy. RECOMMENDATIONS: Findings of this examination were discussed with the patient and her . Okay to resume diet. Okay to resume medications. Follow-up with gastroenterology as previously scheduled. Anticipate repeat colonoscopy in 5 years for personal history of colon polyps pending pathology from polypectomies.
[2018-12-10 10:40] VITALS: BP 126/78; PULSE 70
== END 2018-12-10 11:11 | disposition home or self-care (01) ==
LOC: ORWHC2ENDO 09:19
PROVIDERS: ATTEND Internal Medicine
DX: D12.2 Benign neoplasm of ascending colon (principal); K63.5 Polyp of colon; K57.30 Diverticulosis of large intestine without perforation or abscess without bleeding; G89.29 Other chronic pain; M54.9 Dorsalgia, unspecified; F41.9 Anxiety disorder, unspecified; F32.9 Major depressive disorder, single episode, unspecified; I49.8 Other specified cardiac arrhythmias; E66.9 Obesity, unspecified; Z68.34 Body mass index [BMI] 34.0-34.9, adult; Z87.19 Personal history of other diseases of the digestive system; Z91.041 Radiographic dye allergy status; Z88.8 Allergy status to other drugs, medicaments and biological substances; Z88.0 Allergy status to penicillin; Z91.013 Allergy to seafood; Z79.899 Other long term (current) drug therapy; Z79.82 Long term (current) use of aspirin; Z86.718 Personal history of other venous thrombosis and embolism; Z87.891 Personal history of nicotine dependence; Z90.710 Acquired absence of both cervix and uterus; Z90.89 Acquired absence of other organs; Z98.890 Other specified postprocedural states
CPT/HCPCS: 88305; 45380; J2704

== ENCOUNTER → 2019-01-23 | Outpatient (CLI) | payer BC ==
--- NOTE | 2019-01-23 12:05 | XR ---
EXAMINATION TYPE: XR chest 2V DATE OF EXAM: 01/23/2019 COMPARISON: 10/18/2015 TECHNIQUE: PA and lateral views submitted. HISTORY: Chest pain FINDINGS: The lungs are clear and there is no pneumothorax, pleural effusion, or focal pneumonia. Hypertrophi c and degenerative change the spine. No overt failure. Heart size stable and mildly prominent. IMPRESSION: 1. No acute process. Coarsened interstitium can be associated with bronchitis or interstitial chronic lung disease. No definite overt failure correlate clinically.
== END | disposition home or self-care (01) ==
LOC: RADXRMAIN 11:18
PROVIDERS: ATTEND Family Medicine
DX: R07.9 Chest pain, unspecified (principal)
CPT/HCPCS: 71046

== ENCOUNTER → 2019-02-20 | Outpatient (CLI) | payer BC ==
--- NOTE | 2019-02-20 10:32 | XR ---
EXAMINATION TYPE: XR chest 2V DATE OF EXAM: 02/20/2019 COMPARISON: 01/23/2019 TECHNIQUE: PA and lateral views submitted. HISTORY: Cough FINDINGS: The lungs are clear and there is no pneumothorax, pleural effusion, or focal pneumonia. Interstitiu m appears improved. No overt failure. Arthropathy of the shoulders. Degenerative change of the spine. IMPRESSION: 1. No acute process.
== END | disposition home or self-care (01) ==
LOC: RADXRMAIN 10:08
PROVIDERS: ATTEND Family Medicine
DX: R06.02 Shortness of breath (principal); R05 Cough
CPT/HCPCS: 71046

== ENCOUNTER 2019-08-12 11:38 | Day surgery (SDC) | payer BC ==
[2019-08-12] MEDS ORDERED: LACTATED RINGERS 1,000 ML IV SCH (11:54)
[2019-08-12] MEDS ORDERED: LIDOCAINE 1% (10MG/ML) FOR IV START INTRADERMA ONE (12:15)
[2019-08-12 12:29] VITALS: TEMP 99
[2019-08-12] MEDS ORDERED: LIDOCAINE 1% INJ 10MG/ML (20 ML MDV) ONE (12:40)
[2019-08-12] MEDS ORDERED: PROPOFOL 10 MG/ML 20 ML VIAL IV ONE (12:40)
--- NOTE | 2019-08-12 12:59 | P.PCN ---
Date of Procedure: 08/12/19 Description of Procedure: BRIEF HISTORY: Patient is a 59-year-old female who is seen for esophagogastroduodenoscopy for evaluation of epigastric abdominal pain. Patient has been seen in the fundic reporting symptoms of heartburn, nausea, vomiting and epigastric pain which had worsened prior to being seen in the clinic. She has been started on PPI therapy and plans to follow-up next month.. PROCEDURE PERFORMED: Esophagogastroduodenoscopy with biopsy. PREOPERATIVE DIAGNOSIS: Epigastric abdominal pain. ESTIMATED BLOOD LOSS: Minimal. IV sedation per anesthesia. PROCEDURE: After informed consent was obtained, the patient was brought into the endoscopy unit. IV sedation was administered by Anesthesia under continuous monitoring. Initially the Olympus GIF-190 video endoscope was inserted into the mouth. Esophagus intubated without any difficulty. It was gradually advanced into the stomach and duodenum and carefully examined. The bulb and the second part of the duodenum appeared normal, with biopsies taken. The scope at this time was withdrawn to the stomach, adequately insufflated with air, and upon careful examination, mucosa of the antrum, body, cardia and the fundus appeared normal, except for some mild punctate erythema in the antrum and body suggestive of mild gastritis with biopsies taken. The scope was then withdrawn into the esophagus. The GE junction was located at 38 cm from the incisors, with a small 1 cm hiatal hernia noted. The esophagus appeared normal except for some mild erythema and erosions in the distal esophagus consistent with LA grade a distal esophagitis with biopsies of the lower esophagus taken. There were no erosions or ulcer ations seen and the patient tolerated the procedure well. IMPRESSION: 1. Mild gastritis antrum and body, biopsied. 2. LA grade a distal esophagitis, distal esophageal biopsies taken. 3. Duodenal biopsies. RECOMMENDATIONS: The findings of this examination were discussed with the patient. Okay to resume diet. Okay to resume medications. Await pathology from biopsies. Follow up in gastroenterology clinic as previously scheduled. Continue PPI therapy, with consideration for twice daily dosing if no improvement in symptoms.
[2019-08-12 13:02] VITALS: PULSE 82
[2019-08-12 13:22] VITALS: BP 140/95; RESP 16
== END 2019-08-12 13:44 | disposition home or self-care (01) ==
LOC: ORWHC2ENDO 11:38
PROVIDERS: ATTEND Internal Medicine
DX: K29.50 Unspecified chronic gastritis without bleeding (principal); K20.9 Esophagitis, unspecified; K44.9 Diaphragmatic hernia without obstruction or gangrene; F32.9 Major depressive disorder, single episode, unspecified; Z90.710 Acquired absence of both cervix and uterus; Z87.891 Personal history of nicotine dependence; Z98.890 Other specified postprocedural states; Z86.718 Personal history of other venous thrombosis and embolism; Z95.820 Peripheral vascular angioplasty status with implants and grafts; Z91.041 Radiographic dye allergy status; Z79.82 Long term (current) use of aspirin; Z79.899 Other long term (current) drug therapy; Z88.0 Allergy status to penicillin; Z91.013 Allergy to seafood
CPT/HCPCS: 43239; 88305; J2001; J2704

== ENCOUNTER → 2019-09-10 | Outpatient (CLI) | payer BC | END | disposition home or self-care (01) | LOC: LABWHC1 11:37 | PROVIDERS: ATTEND Family Medicine | DX: Z20.828 Contact with and (suspected) exposure to other viral communicable diseases (principal) | CPT/HCPCS: U0003; C9803 ==

== ENCOUNTER 2019-10-29 09:10 | Emergency (ER) | payer BC ==
[2019-10-29 09:14] VITALS: RESP 16; TEMP 97.6
--- NOTE | 2019-10-29 09:54 | ED ---
Back Pain HPI - General Chief Complaint: Back Pain/Injury Stated Complaint: back pain Time Seen by Provider: 10/29/19 09:17 Source: patient Limitations: no limitations - History of Present Illness Initial Comments: 59-year-old female presenting today for chief complaint of right lower back pain. Patient states that she has had right lower back pain since Sunday. She states that increases when she takes a deep breath or the area is palpated. Patient states she has a history of DVT following a varicose vein surgery and remembers them discussing pulmonary embolism patient states that she has no chest pain but was not sure if the lung stretch down that far. Patient denies shortness of breath she denies nausea vomiting diarrhea directed injury trauma to the back fevers IV drug use history of cancer she denies any specific strenuous activity over the weekend. Denies loss of bowel bladder control urinary retention weakness of the lower extremities or sensation deficits. Patient states she was taken off her anticoagulation therapy 6 months after the DVT due to having an inciting event. Denies leg swelling or calf pain today. Patient has no additional complaints. She appears well nontoxic in no acute distress on arrival. - Related Data Home Medications Medication Instructions Recorded Confirmed Ascorbic Acid [Vitamin C] 1,000 mg PO HS 05/16/17 08/12/19 Docusate [Colace] 400 mg PO HS 05/16/17 08/12/19 Multivitamins, Thera [Multivitamin 1 tab PO HS 05/16/17 08/12/19 (formulary)] Aspirin EC [Ecotrin] 325 mg PO DAILY 06/17/18 08/12/19 Fexofenadine/Pseudoephedrine 1 tab PO DAILY 06/17/18 08/12/19 [Vee-D 24 Hour Tablet] Folic Acid 1 mg PO DAILY 06/17/18 08/12/19 Vitamin B Complex 1 cap PO DAILY 06/17/18 08/12/19 LORazepam [Ativan] 1 mg PO DAILY PRN 10/03/18 08/12/19 DULoxetine HCL [Cymbalta] 30 mg PO QAM 12/06/18 08/12/19 Omeprazole [PriLOSEC] 1 tab PO DAILY PRN 08/12/19 08/12/19 Promethazine [Phenergan] 1 tab PO DIRECTED PRN 08/12/19 08/12/19 QUEtiapine FUMARATE [SEROquel] 25 mg PO BID 08/12/19 08/12/19 Previous Rx's Medication Instructions Recorded Cyclobenzaprine [Flexeril] 10 mg PO BID PRN 5 Days #10 tab 10/29/19 Allergies Allergy/AdvReac Type Severity Reaction Status Date / Time Iodinated Contrast Media Allergy Unknown Verified 10/29/19 09:11 [Iodinated Contrast- Oral and IV Dye] loracarbef [From Lorabid] Allergy Anaphylaxis Verified 10/29/19 09:11 Penicillins Allergy Unknown Verified 10/29/19 09:11 shellfish derived Allergy Swelling Verified 10/29/19 09:11 Review of Systems ROS Statement: Those systems with pertinent positive or pertinent negative responses have been documented in the HPI. ROS Other: All systems not noted in ROS Statement are negative. Past Medical History Past Medical History: Deep Vein Thrombosis (DVT) Additional Past Medical History / Comment(s): Chronic back pain, diverticulitis. History of Any Multi-Drug Resistant Organisms: None Reported Past Surgical History: Back Surgery, Section, Hysterectomy, Tonsillectomy Additional Past Surgical History / Comment(s): Hardware in back (cage/rods/screws). Stent placed in femur 2018 due to DVT. Past Anesthesia/Blood Transfusion Reactions: Previous Problems w/ Anesthesia Additional Past Anesthesia/Blood Transfusion Reaction / Comment(s): "I've been told on a few ocassions that my heart flutters quite a bit with anesthesia." Past Psychological History: Anxiety, Depression Smoking Status: Former smoker Past Alcohol Use History: Occasional Past Drug Use History: None Reported - Past Family History Mother Family Medical History: No Reported History General Exam - General Exam Comments Initial Comments: General: The patient is awake and alert, in no distress, and does not appear acutely ill. Eye: +3 mm pupils are equal, round and reactive to light, extra-ocular movements are intact. No nystagmus. There is normal conjunctiva bilaterally. No signs of icterus. Ears, nose, mouth and throat: There are moist mucous membranes and no oral lesions. Neck: The neck is supple, there is no tenderness or JVD. Cardiovascular: There is a regular rate and rhythm. No murmur, rub or gallop is appreciated. Respiratory: Lungs are clear to auscultation, respirations are non-labored, breath sounds are equal. No wheezes, stridor, rales, or rhonchi. Gastrointestinal: Soft, non-distended, non-tender abdomen without masses or organomegaly noted. There is no rebound or guarding present. Musculoskeletal: Normal inspection of the back, there is point localized tenderness over the right lower thoracic paraspinal muscle, pt jumps when area if palpated. Normal ROM, no tenderness. Strength 5/5. Sensation intact. Radial pulses equal bilaterally 2+. Neurological: A&O x 3. CN II-XII intact grossly, There are no obvious motor or sensory deficits. Coordination appears grossly intact. Speech is normal. Skin: Skin is warm and dry and no rashes or lesions are noted. Psychiatric: Cooperative, appropriate mood & affect, normal judgment. Limitations: no limitations Course Vital Signs 10/29/19 10/29/19 09:11 10:23 Temperature 97.6 F Pulse Rate 72 70 Respiratory 16 16 Rate Blood Pressure 159/98 160/70 O2 Sat by Pulse 98 98 Oximetry Medical Decision Making - Medical Decision Making 59yo presenting for back pain, low right sided, increased with movement/twisting/touch or inhalation. Appears much to low the area where patient jumps when palpated to be in lung lorenzo. Pt states she would want to make sure not blood clot. Denies SOB. no extremity symptoms or findings. VS no tachycardia. Dimer (-). Patient has lidocaine patch applied given toradol and presribed flexeril. Dr. Henderson is agreeable to care plan and discharge. - Lab Data Lab Results 10/29/19 Range/Units 09:41 D-Dimer 0.27 (<0.60) mg/L FEU Disposition Clinical Impression: Low back pain Disposition: HOME SELF-CARE Condition: Good Instructions (If sedation given, give patient instructions): Muscle Strain (ED) Additional Instructions: Please use medication as discussed. Please follow-up with family doctor in the next 2 days.Please return to emergency room if the symptoms increase or worsen or for any other concerns. Prescriptions: Cyclobenzaprine [Flexeril] 10 mg PO BID PRN 5 Days #10 tab PRN Reason: Muscle Spasm Is patient prescribed a controlled substance at d/c from ED?: No Referrals: Iain Lima MD [Primary Care Provider] - 1-2 days Time of Disposition: 10:13
[2019-10-29] MEDS ORDERED: KETOROLAC 15 MG/ML 1 ML VIAL IM STA (10:12)
[2019-10-29] MEDS ORDERED: LIDOCAINE 5% PATCH TOPICAL SCH (10:15)
[2019-10-29 10:26] VITALS: BP 160/70; PULSE 70
== END 2019-10-29 10:23 | disposition home or self-care (01) ==
LOC: EC 09:10
DX: M54.5 Low back pain (principal); F41.9 Anxiety disorder, unspecified; F32.9 Major depressive disorder, single episode, unspecified; Z79.82 Long term (current) use of aspirin; Z79.899 Other long term (current) drug therapy; Z91.041 Radiographic dye allergy status; Z88.0 Allergy status to penicillin; Z88.1 Allergy status to other antibiotic agents; Z91.013 Allergy to seafood; Z86.718 Personal history of other venous thrombosis and embolism; Z87.891 Personal history of nicotine dependence
CPT/HCPCS: 36415; 85379; 99283; 96372; J1885

== ENCOUNTER → 2019-12-15 | Outpatient (CLI) | payer BC ==
--- NOTE | 2019-12-15 21:13 | BD ---
EXAMINATION TYPE: Axial Bone Density DXA Left Forearm DATE OF EXAM: 12/15/2019 COMPARISON: 02/11/2014 CLINICAL HISTORY: 59-year-old female postmenopausal screening Height: 67 IN Weight: 243 LBS RISK FACTORS HISTORY OF: Spine Fracture: L-SPINE Surgery to Spine: L-SPINE Active: YES Postmenopausal woman: TOTAL HYST AGE 45 Take estrogen and/or progesterone medications: NOT NOW How long: AGE 48-49 MEDICATIONS: Additional Medications: CALCIUM, VIT D, MULTI VIT, VIT B, VIT C, EXAM MEASUREMENTS: Bone mineral densitometry was performed using the [employer] Interactive System. Bone mineral density about the R hip (g/cm2): 0.987 Bone mineral density about the L hip (g/cm2): 0.954 T Score values are as follows: -----R Neck: -0.4 -----L Neck: -0.6 -----R Total: 0.6 -----L Total: 1.0 Bone mineral density has: Decreased -3.6% since study of: 02/11/2014 Bone mineral density about the L Wrist (g/cm2): 0.722 T Score values are as follows: -----Dist. R+U: 0.7 -----Prox. R+U: 0.6 -----Radius total: 0.8 Bone mineral density BASELINE IMPRESSION: Normal (Values between +1 and -1 indicate normal bone mass) as measured in the bilateral hips and lef t forearm. Consider repeating this study in 5 years or sooner if there is some new clinical indication. NOTE: T-SCORE=SD OF THE YOUNG ADULT MEAN.
--- NOTE | 2019-12-17 09:38 | MM ---
Reason for exam: screening (asymptomatic). Last mammogram was performed 1 year and 4 months ago. History: Patient is postmenopausal. Family history of premenopausal breast cancer in maternal cousin at age 42, breast cancer in sister at age 61, and breast cancer in maternal grandmother at age 60. Took estrogen for 1 year 3 months beginning at age 48. Physical Findings: A clinical breast exam by your physician is recommended on an annual basis and results should be correlated with mammographic findings. MG Screening Mammo w CAD Bilateral CC and MLO view(s) were taken. CV view(s) were taken of the right breast. Prior study comparison: July 30, 2018, bilateral MG screening mammo w CAD. July 25, 2017, bilateral MG screening mammo w CAD. There are scattered fibroglandular densities. There is chronic nodularity in the right breast. No significant changes when compared with prior studies. ASSESSMENT: Benign, BI-RAD 2 RECOMMENDATION: Routine screening mammogram of both breasts in 1 year.
== END | disposition home or self-care (01) ==
LOC: RADMAMWWP 16:09
PROVIDERS: ATTEND Obstetrics & Gynecology
DX: Z12.31 Encounter for screening mammogram for malignant neoplasm of breast (principal); N95.1 Menopausal and female climacteric states
CPT/HCPCS: 77067; 77080

== ENCOUNTER → 2019-12-24 | Outpatient (CLI) | payer BC | END | disposition home or self-care (01) | LOC: LABWHC1 10:41 | PROVIDERS: ATTEND Family Medicine | DX: R05 Cough (principal) | CPT/HCPCS: U0003; C9803 ==

== ENCOUNTER → 2020-03-10 | Outpatient (CLI) | payer BC | END | disposition home or self-care (01) | LOC: LABWHC1 10:49 | PROVIDERS: ATTEND Family Medicine | DX: Z20.822 Contact with and (suspected) exposure to COVID-19 (principal) | CPT/HCPCS: U0003; C9803; U0005 ==

== ENCOUNTER 2020-05-12 21:36 | Emergency (ER) | payer BC ==
[2020-05-12 23:32] VITALS: BP 124/77; PULSE 81; RESP 20; TEMP 97.4
--- NOTE | 2020-05-13 00:09 | XR ---
EXAMINATION TYPE: XR elbow complete LT DATE OF EXAM: 05/12/2020 COMPARISON: NONE HISTORY: Fall. Pain. TECHNIQUE: 2 views FINDINGS: Exam is limited by lack of lateral view. There is large chip fracture of the lateral aspect of the radial head. The missing fragment measures approximately 13 mm. I see no definite dislocation . IMPRESSION: Limited exam appears to show large intra-articular chip fracture of the lateral aspect of the radial head.
--- NOTE | 2020-05-13 00:10 | XR ---
EXAMINATION TYPE: XR humerus LT DATE OF EXAM: 05/13/2020 COMPARISON: NONE HISTORY: Fall. Pain. TECHNIQUE: 3 views FINDINGS: The lateral view shows a posterior dislocation of the ulna and the radial head. There is la rge chip fracture of the radial head on the lateral aspect. I see no definite ulna fracture. Distal h umerus is intact. The shoulder joint is anatomic. IMPRESSION: There is posterior dislocation of the elbow joint. There is also at intra-articular chip fracture lateral aspect of the radial head.
--- NOTE | 2020-05-13 00:12 | XR ---
EXAMINATION TYPE: XR forearm LT DATE OF EXAM: 05/13/2020 COMPARISON: NONE HISTORY: Arm pain. Fall. TECHNIQUE: 2 views FINDINGS: The wrist joint appears anatomic. Carpal bones are intact. There is deformity of the radial head related to a transverse fracture 1 cm from the radiohumeral dariela nt. The proximal ulna is intact. IMPRESSION: Limited exam shows intra-articular fracture of the radial head. No evidence of ulnar frac ture. No fracture seen at the wrist joint.
[2020-05-13] MEDS ORDERED: HYDROmorphone 1 MG/ML 1 ML SYRINGE IM STA (00:32)
[2020-05-13] MEDS ORDERED: ACET/COD 300 MG/30 MG STARTER PACK 6 TAB BTL PO STA (00:32)
[2020-05-13] MEDS ORDERED: IBUPROFEN 800 MG TAB PO STA (00:32)
[2020-05-13] MEDS ORDERED: IBUPROFEN 600 MG STARTER PACK 4 TAB BTL PO STA (00:32)
--- NOTE | 2020-05-13 00:53 | ED ---
Fall HPI - General Chief Complaint: Fall Stated Complaint: Extremity injury,Left upper arm Time Seen by Provider: 05/13/20 00:15 Source: patient Mode of arrival: ambulatory - Related Data Home Medications Medication Instructions Recorded Confirmed Ascorbic Acid [Vitamin C] 1,000 mg PO HS 05/16/17 08/12/19 Docusate [Colace] 400 mg PO HS 05/16/17 08/12/19 Multivitamins, Thera [Multivitamin 1 tab PO HS 05/16/17 08/12/19 (formulary)] Aspirin EC [Ecotrin] 325 mg PO DAILY 06/17/18 08/12/19 Fexofenadine/Pseudoephedrine 1 tab PO DAILY 06/17/18 08/12/19 [Vee-D 24 Hour Tablet] Folic Acid 1 mg PO DAILY 06/17/18 08/12/19 Vitamin B Complex 1 cap PO DAILY 06/17/18 08/12/19 LORazepam [Ativan] 1 mg PO DAILY PRN 10/03/18 08/12/19 DULoxetine HCL [Cymbalta] 30 mg PO QAM 12/06/18 08/12/19 Omeprazole [PriLOSEC] 1 tab PO DAILY PRN 08/12/19 08/12/19 Promethazine [Phenergan] 1 tab PO DIRECTED PRN 08/12/19 08/12/19 QUEtiapine FUMARATE [SEROquel] 25 mg PO BID 08/12/19 08/12/19 Previous Rx's Medication Instructions Recorded Cyclobenzaprine [Flexeril] 10 mg PO BID PRN 5 Days #10 tab 10/29/19 Allergies Allergy/AdvReac Type Severity Reaction Status Date / Time Iodinated Contrast Media Allergy Unknown Verified 05/12/20 23:32 [Iodinated Contrast- Oral and IV Dye] loracarbef [From Lorabid] Allergy Anaphylaxis Verified 05/12/20 23:32 Penicillins Allergy Unknown Verified 05/12/20 23:32 shellfish derived Allergy Swelling Verified 05/12/20 23:32 Review of Systems ROS Statement: Those systems with pertinent positive or pertinent negative responses have been documented in the HPI. ROS Other: All systems not noted in ROS Statement are negative. Past Medical History Past Medical History: Deep Vein Thrombosis (DVT) Additional Past Medical History / Comment(s): Chronic back pain, diverticulitis. History of Any Multi-Drug Resistant Organisms: None Reported Past Surgical History: Back Surgery, Section, Hysterectomy, Tonsillectomy Additional Past Surgical History / Comment(s): Hardware in back (cage/rods/screws). Stent placed in femur 2018 due to DVT. Past Anesthesia/Blood Transfusion Reactions: Previous Problems w/ Anesthesia Additional Past Anesthesia/Blood Transfusion Reaction / Comment(s): "I've been told on a few ocassions that my heart flutters quite a bit with anesthesia." Past Psychological History: Anxiety, Depression Smoking Status: Former smoker Past Alcohol Use History: Occasional Past Drug Use History: None Reported - Past Family History Mother Family Medical History: No Reported History General Exam Limitations: no limitations Course Vital Signs 05/12/20 23:29 Temperature 97.4 F L Pulse Rate 81 Respiratory 20 Rate Blood Pressure 124/77 O2 Sat by Pulse 98 Oximetry Disposition Clinical Impression: Fall, Dislocation of left elbow, Radial head fracture Disposition: HOME SELF-CARE Condition: Good Instructions (If sedation given, give patient instructions): Elbow Dislocation (ED), Closed Reduction (ED) Is patient prescribed a controlled substance at d/c from ED?: No Referrals: Iain Lima MD [Primary Care Provider] - 1-2 days
--- NOTE | 2020-05-13 01:13 | XR ---
EXAM: XR Left Elbow Complete, 1 View CLINICAL HISTORY: ITS.REASON XR Reason: pain TECHNIQUE: Single lateral view of the left elbow. COMPARISON: 05/12/2020 at 11:58pm FINDINGS: Bones/joints: Interval casting of the left elbow with comminuted fracture of the radial head with multiple small ossific fragments in the elbow joint overlying the radial head. No left elbow dislocation. No definite coronoid process fracture. Soft tissues: Large elbow effusion. IMPRESSION: Interval casting of the left elbow with comminuted fracture of the radial head. Elbow joint is in normal anatomic alignment.
== END 2020-05-13 01:00 | disposition home or self-care (01) ==
LOC: EC 21:36
DX: S52.122A Displaced fracture of head of left radius, initial encounter for closed fracture (principal); F41.9 Anxiety disorder, unspecified; F32.9 Major depressive disorder, single episode, unspecified; Z87.891 Personal history of nicotine dependence; Z86.718 Personal history of other venous thrombosis and embolism; Z88.0 Allergy status to penicillin; W19.XXXA Unspecified fall, initial encounter
CPT/HCPCS: 96372; 99284

== ENCOUNTER → 2020-06-02 | Outpatient (CLI) | payer BC ==
[~2020-06-02] MED LIST changes: +DOBUTamine DRIP for NUC MED 500 MG in DEXTROSE/WATER 1 250ML.BAG IV PRN; -LACTATED RINGERS 1,000 ML IV SCH; -LIDOCAINE 1% 20 ML VIAL (10MG/ML) FOR IV START INTRADERMA PRN
--- NOTE | 2020-06-03 10:42 | EST ---
EXERCISE STRESS REFERRING DOCTOR: Dr. Lima. INDICATION: Chest pain. AGE: 59 SEX: F HT: 5'8" WT: 251 lbs. PROTOCOL: Dobutamine STAGE: 4 DURATION OF EXERCISE: 13:39 HEART RATE REST: 66 BLOOD PRESSURE REST: 133/73 MAXIMUM HEART RATE ACHIEVED: 137 MAXIMUM BLOOD PRESSURE: 135/72 85% MPHR: 137 100% MPHR: 161 METS: N/A STRESS DATA: Heart rate 66, pressure is 133/73 mmHg. Baseline EKG showed sinus mechanism. Dobutamine infusion at a dose of 10 mcg/kg per minute was initiated and increased to 70- 40 mcg/kg per minute per protocol. Max heart rate was 124, which is about 77% of maximum predicted heart rate. Maximum blood pressure was 108/72 mmHg. Clinically, the patient did not have any symptoms of chest pain or chest discomfort. The EKG did not show any significant ST or T-wave abnormalities concerning for ischemia. The patient developed chest discomfort in response to exercise. ECHOCARDIOGRAM IMAGES: On echocardiogram images from parasternal long axis view, parasternal short axis view, apical 4 chamber and apical 2 chambers were obtained as the baseline images, at low dose dobutamine infusion, at peak heart rate as well as on recovery and the echocardiogram images showed good augmentation in the left ventricular systolic function without any evidence of wall motion abnormalities concerning for ischemia. CONCLUSION: 1. Chest discomfort in response to dobutamine. 2. Normal EKG in response to dobutamine. 3. Normal echocardiogram in response to dobutamine. 4. Overall nondiagnostic stress test because the patient achieved only 77% of maximum predicted heart rate. MMODL / IJN: [id number] /
== END | disposition home or self-care (01) ==
LOC: RADNMMAIN 09:29
PROVIDERS: ATTEND Family Medicine
DX: R94.31 Abnormal electrocardiogram [ECG] [EKG] (principal); R07.9 Chest pain, unspecified
CPT/HCPCS: 93351; Q9950

== ENCOUNTER → 2020-09-13 | Outpatient (CLI) | payer BC ==
--- NOTE | 2020-09-14 08:09 | MR ---
EXAMINATION TYPE: MR lumbar spine wo/w con DATE OF EXAM: 09/13/2020 COMPARISON: CT abdomen and pelvis October 03, 2018 HISTORY: No prior, low back pain, history of surgery 1992 and 2002 TECHNIQUE: Multiplanar, multisequence images of the lumbar spine is performed without and with IV contrast, util izing 11.5 mL intravenous Gadavist FINDINGS: Sagittal images of the lumbar spine show vertebral body heights and alignment to appear sat isfactory. Artifact from posterior interpedicular screws and rods bilaterally L4-S1 level and artifac t from artificial disc material L4-L5 and L5-S1 levels is present. Posterior decompression surgical c hanges noted. Multilevel disc desiccation superior to this but this space heights are maintained. Mil d to moderate multilevel anterior spurring. Some ossific fusion anterior L4-L5 level. Modic type II e ndplate changes lower lumbar spine and surgical levels The conus medullaris is normal in position and signal ending superior L1 level. No suspicious postcontrast enhancement. Axial images at T12-L1 and L1-L2 levels appear within normal limits. Axial images at L2-L3 level show small focal right paracentral disc protrusion mildly effacing the an terolateral thecal sac and mild facet arthropathy bilaterally. Patent Bilateral neural foramina. Axial images at L3-L4 level show artifact from surgical change. There is moderate facet arthropathy a nd ligament flavum hypertrophy pressing posterior lateral thecal sac. There is moderate broad-based d isc bulge effacing the anterior thecal sac. Prominent spinal canal effacement of stenosis seen at thi s level axial images 12 and 13. Moderate bilateral neural foraminal narrowing is present. Axial images at L4-L5 and L5-S1 levels show artifact from surgical change. Successful posterior decom pression changes with patent spinal canal. Bilateral neural foramina are patent. Small central parapelvic cysts in the left kidney is incidentally noted. Low density in the left comm on iliac vein consistent with known stent graft. IMPRESSION: Postsurgical change L4-S1 levels. Satisfactory alignment and posterior decompression. Deg enerative changes greatest at L3-L4 level now present as detailed above.
== END | disposition home or self-care (01) ==
LOC: RADMRIMAIN 08:51
PROVIDERS: ATTEND Family Medicine
DX: M51.26 Other intervertebral disc displacement, lumbar region (principal); M47.816 Spondylosis without myelopathy or radiculopathy, lumbar region; M99.73 Connective tissue and disc stenosis of intervertebral foramina of lumbar region; Z98.890 Other specified postprocedural states
CPT/HCPCS: 72158; A9585

== ENCOUNTER → 2020-11-10 | Outpatient (CLI) | payer BC ==
--- NOTE | 2020-11-11 05:31 | MR ---
EXAMINATION TYPE: MR cervical spine wo con DATE OF EXAM: 11/10/2020 COMPARISON: None HISTORY: Neck pain Multiplanar multiecho imaging of the cervical spine without contrast. There is slight straightening of the mid cervical spine. There is some degenerative disc space narrow ing from C4 to C7. There is mild posterior disc herniation at C4-5 and the spinal canal. There is con tact with the anterior aspect of the cervical spinal cord. There is developmentally adequate spinal c anal and canal measures 8.2 mm at C3-4 which is the narrowest point. There is anterior spurring at C4 -5 and C5-6. Cervical spinal cord shows no edema. The brainstem appears intact. The facet joints are intact. IMPRESSION: Mild posterior disc herniation at C4-5. No significant spinal stenosis. Minimal posterior disc bulge at C5-6. No fracture. Multilevel mild spondylotic degenerative disc changes.
== END | disposition home or self-care (01) ==
LOC: RADMRIMAIN 12:47
PROVIDERS: ATTEND Orthopaedic Surgery
DX: M50.222 Other cervical disc displacement at C5-C6 level (principal); M47.812 Spondylosis without myelopathy or radiculopathy, cervical region
CPT/HCPCS: 72141

== ENCOUNTER → 2021-02-17 | Outpatient (CLI) | payer BC ==
--- NOTE | 2021-02-21 09:38 | MM ---
Reason for exam: screening (asymptomatic). Last mammogram was performed 1 year and 2 months ago. History: Patient is postmenopausal. Family history of breast cancer in paternal grandmother, premenopausal breast cancer in maternal cousin at age 42, breast cancer in sister at age 61, and breast cancer in maternal grandmother at age 60. Took estrogen for 1 year 3 months beginning at age 48. Physical Findings: A clinical breast exam by your physician is recommended on an annual basis and results should be correlated with mammographic findings. MG Screening Mammo w CAD Bilateral CC, MLO, and XCCL view(s) were taken. Prior study comparison: December 15, 2019, bilateral MG screening mammo w CAD. July 30, 2018, bilateral MG screening mammo w CAD. There are scattered fibroglandular densities. There is chronic nodularity in the right breast. No significant changes when compared with prior studies. ASSESSMENT: Benign, BI-RAD 2 RECOMMENDATION: Routine screening mammogram of both breasts in 1 year.
== END | disposition home or self-care (01) ==
LOC: RADMAMWWP 09:12
PROVIDERS: ATTEND Obstetrics & Gynecology
DX: Z12.31 Encounter for screening mammogram for malignant neoplasm of breast (principal); Z80.3 Family history of malignant neoplasm of breast; Z78.0 Asymptomatic menopausal state
CPT/HCPCS: 77067

== ENCOUNTER → 2021-03-04 | Outpatient (CLI) | payer BC ==
--- NOTE | 2021-03-05 15:41 | XR ---
Thoracic spine HISTORY: M54.6 3 views of the thoracic spine correlated to prior exam 10/18/2012 Multilevel spondylosis is again noted. Gentle spinal curvature is present. Thoracic vertebral bodies show preserved height, bone mineralization is mildly reduced. There is multilevel spondylosis. Some l oss of disc height at intervertebral levels of the midthoracic spine again noted. Degenerative disc c hanges are present in the cervical spine. IMPRESSION: Degenerative disc disease, mild spinal curvature, there may be some mild osteopenia
== END | disposition home or self-care (01) ==
LOC: RADXRMAIN 15:52
PROVIDERS: ATTEND Family Medicine
DX: M51.34 Other intervertebral disc degeneration, thoracic region (principal); M43.8X4 Other specified deforming dorsopathies, thoracic region
CPT/HCPCS: 72072

== ENCOUNTER 2021-06-20 09:27 | Emergency (ER) | payer BC ==
--- NOTE | 2021-06-20 11:29 | ED ---
General Adult HPI - General Chief complaint: Extremity Problem,Nontraumatic Stated complaint: Left leg pain Time Seen by Provider: 06/20/21 10:35 Source: patient Mode of arrival: ambulatory Limitations: no limitations - History of Present Illness Initial comments: This 60-year-old female presents emergency Department with left calf pain. Patient states she has had a DVT in her left lower extremity in 2018 that had to be surgically removed. Patient states she was outside gardening yesterday and was on her knees for 3-4 hours. Patient states when she stood up she began to experience pain behind her knee and down to her left calf. Patient denies being on any blood thinners at this time as she states she was only on Eliquis 6 months before getting her clot removed. Patient states she did try to take Motrin and Tylenol 3 at home which only minimally relieved her pain. Patient denies any swelling, erythema or warmth to the left lower extremity. Patient states her pain is currently 8/10. Patient denies any fever, chest pain, shortness of breath, nausea, vomiting, abdominal pain, back pain, change in bowel or bladder, change in appetite, lightheadedness, dizziness, change in vision, fever, rash. - Related Data Home Medications Medication Instructions Recorded Confirmed Ascorbic Acid [Vitamin C] 1,000 mg PO HS 05/16/17 08/12/19 Docusate [Colace] 400 mg PO HS 05/16/17 08/12/19 Multivitamins, Thera [Multivitamin 1 tab PO HS 05/16/17 08/12/19 (formulary)] Aspirin EC [Ecotrin] 325 mg PO DAILY 06/17/18 08/12/19 Fexofenadine/Pseudoephedrine 1 tab PO DAILY 06/17/18 08/12/19 [Vee-D 24 Hour Tablet] Folic Acid 1 mg PO DAILY 06/17/18 08/12/19 Vitamin B Complex 1 cap PO DAILY 06/17/18 08/12/19 LORazepam [Ativan] 1 mg PO DAILY PRN 10/03/18 08/12/19 DULoxetine HCL [Cymbalta] 30 mg PO QAM 12/06/18 08/12/19 Omeprazole [PriLOSEC] 1 tab PO DAILY PRN 08/12/19 08/12/19 Promethazine [Phenergan] 1 tab PO DIRECTED PRN 08/12/19 08/12/19 QUEtiapine FUMARATE [SEROquel] 25 mg PO BID 08/12/19 08/12/19 Previous Rx's Medication Instructions Recorded Cyclobenzaprine [Flexeril] 10 mg PO BID PRN 5 Days #10 tab 10/29/19 Allergies Allergy/AdvReac Type Severity Reaction Status Date / Time Iodinated Contrast Media Allergy Anaphylaxis Verified 06/20/21 12:13 [Iodinated Contrast- Oral and IV Dye] loracarbef [From Lorabid] Allergy Anaphylaxis Verified 06/20/21 12:13 Penicillins Allergy "Itching Verified 06/20/21 12:13 inside" shellfish derived Allergy Anaphylaxis Verified 06/20/21 12:13 Review of Systems ROS Statement: Those systems with pertinent positive or pertinent negative responses have been documented in the HPI. ROS Other: All systems not noted in ROS Statement are negative. Past Medical History Past Medical History: Deep Vein Thrombosis (DVT) Additional Past Medical History / Comment(s): Chronic back pain, diverticulitis. History of Any Multi-Drug Resistant Organisms: None Reported Past Surgical History: Back Surgery, Section, Hysterectomy, Tonsillectomy Additional Past Surgical History / Comment(s): Hardware in back (cage/rods/screws). Stent placed in femur 2018 due to DVT. Past Anesthesia/Blood Transfusion Reactions: Previous Problems w/ Anesthesia Additional Past Anesthesia/Blood Transfusion Reaction / Comment(s): "I've been told on a few ocassions that my heart flutters quite a bit with anesthesia." Past Psychological History: Anxiety, Depression Smoking Status: Former smoker Past Alcohol Use History: Occasional Past Drug Use History: None Reported - Past Family History Mother Family Medical History: No Reported History General Exam Limitations: no limitations General appearance: alert, in no apparent distress Head exam: Present: atraumatic, normocephalic, normal inspection Eye exam: Present: normal appearance, PERRL, EOMI. Absent: scleral icterus, conjunctival injection, periorbital swelling Pupils: Present: normal accommodation ENT exam: Present: normal exam, mucous membranes moist Neck exam: Present: normal inspection, full ROM. Absent: tenderness, meningismus, lymphadenopathy Respiratory exam: Present: normal lung sounds bilaterally. Absent: respiratory distress, wheezes, rales, rhonchi, stridor, chest wall tenderness Cardiovascular Exam: Present: regular rate, normal rhythm, normal heart sounds. Absent: systolic murmur, diastolic murmur, rubs, gallop, clicks GI/Abdominal exam: Present: soft, normal bowel sounds. Absent: distended, tenderness, guarding, rebound, rigid Extremities exam: Present: normal inspection, full ROM, tenderness (Patient with tenderness to left calf and the posterior side of knee. No bony tenderness to palpation. No paleness, warmth, erythema or coolness to palpation), normal capillary refill, calf tenderness (Left calf tenderness. No erythema, warmth or swelling. DP pulses palpable bilaterally 2+/4+). Absent: pedal edema, joint swelling Back exam: Present: full ROM. Absent: CVA tenderness (R), CVA tenderness (L), paraspinal tenderness, vertebral tenderness Neurological exam: Present: alert, oriented X3, CN II-XII intact Psychiatric exam: Present: normal affect, normal mood Skin exam: Present: warm, dry, intact, normal color. Absent: rash Course Vital Signs 06/20/21 09:33 Temperature 97.5 F L Pulse Rate 90 Respiratory 16 Rate Blood Pressure 112/59 O2 Sat by Pulse 96 Oximetry Medical Decision Making - Medical Decision Making This 60-year-old female presents emergency department with left calf pain and pain behind the left knee. Left lower extremity Doppler ultrasound impression: No evidence for acute DVT in the left lower extremity. No significant change from prior exam. Patient discharged home and instructed to follow up with her primary care provider next 1-2 days. Strict return precautions were discussed. Patient verbally agreed to plan. Patient sent home in stable condition. Case discussed in detail with my attending, Dr. Solorio. - Radiology Data Radiology results: report reviewed, image reviewed Disposition Clinical Impression: Pain of left calf, Knee pain, left Disposition: HOME SELF-CARE Condition: Stable Instructions (If sedation given, give patient instructions): Knee Sprain (ED) Additional Instructions: Follow-up with your primary care provider in the next 1-2 days. Return to the emergency department with any new, worsening, or concerning symptoms. Is patient prescribed a controlled substance at d/c from ED?: No Referrals: Iain Lima MD [Primary Care Provider] - 1-2 days Time of Disposition: 12:17
--- NOTE | 2021-06-20 11:44 | US ---
EXAMINATION TYPE: US venous doppler duplex LE LT DATE OF EXAM: 06/20/2021 11:04 AM COMPARISON: Left lower extremity venous ultrasound June 16, 2017 CLINICAL HISTORY: h/o clot + left calf pain. Left leg pain SIDE PERFORMED: Left TECHNIQUE: The lower extremity deep venous system is examined utilizing real time linear array sonog luciana with graded compression, doppler sonography and color-flow sonography. VESSELS IMAGED: Common Femoral Vein Deep Femoral Vein Greater Saphenous Vein * Femoral Vein Popliteal Vein Small Saphenous Vein * Proximal Calf Veins (* superficial vessels) Left Leg: Appears negative for DVT Grayscale, color doppler, spectral doppler imaging performed of the deep veins of the left lower extr emity. There is normal flow, compressibility, vascular waveforms. IMPRESSION: No ultrasound evidence for acute DVT in the left lower extremity. No significant change from prior.
[2021-06-20 12:44] VITALS: BP 136/83; PULSE 74; RESP 18; TEMP 97.6
== END 2021-06-20 12:43 | disposition home or self-care (01) ==
LOC: EC 09:27
DX: M79.662 Pain in left lower leg (principal); M25.562 Pain in left knee; F32.A Depression, unspecified; F41.9 Anxiety disorder, unspecified; Z79.82 Long term (current) use of aspirin; Z86.718 Personal history of other venous thrombosis and embolism; Z87.891 Personal history of nicotine dependence
CPT/HCPCS: 99283

== ENCOUNTER → 2021-11-08 | Outpatient (CLI) | payer BC ==
--- NOTE | 2021-11-08 15:27 | XR ---
EXAMINATION TYPE: XR chest 2V DATE OF EXAM: 11/08/2021 COMPARISON: Chest x-ray dated 02/20/2019 HISTORY: R05.9, cough TECHNIQUE: Frontal and lateral views of the chest are obtained. FINDINGS: There is no focal air space opacity, pleural effusion, or pneumothorax seen. The cardiac silhouette size is within normal limits. There is eventration of the right hemidiaphragm. The osseou s structures are intact. IMPRESSION: No acute cardiopulmonary process.
== END ==
LOC: RADXRMAIN 10:23
PROVIDERS: ATTEND Family Medicine
DX: R05.9 Cough, unspecified (principal)
CPT/HCPCS: 71046

== ENCOUNTER → 2022-08-02 | Outpatient (CLI) | payer BC ==
--- NOTE | 2022-08-03 20:25 | MM ---
Reason for Exam: Screening (asymptomatic). Last mammogram was performed 1 year(s) and 5 month(s) ago. Patient History: Menarche at age 12. First Full-Term at age 19. Left ovary removed at age 45. Right ovary removed at age 45. Hysterectomy at age 45. Postmenopausal. Patient has history of breast feeding. Estrogen for 1 year, 3 months, from age 48 until age 49. Paternal grandmother had breast cancer. Maternal grandmother had breast cancer, age 60. Maternal cousin had breast cancer, age 42. Sister had breast cancer, age 61. Risk Values: Geno 5 year model risk: 2.8%. NCI Lifetime model risk: 12.5%. Prior Study Comparison: 04/02/2015 Bilateral Screening Mammogram, [facility]. 04/10/2016 Bilateral Screening Mammogram, [facility]. 07/25/2017 Bilateral Screening Mammogram, [facility]. 07/30/2018 Bilateral Screening Mammogram, [facility]. 12/15/2019 Bilateral Screening Mammogram, [facility]. 02/17/2021 Bilateral Screening Mammogram, [facility]. Tissue Density: There are scattered fibroglandular densities. Findings: Analyzed By CAD. Chronic nodularity on the right. There is no suspicious group of microcalcifications or new suspicious mass in either breast. Overall Assessment: Benign, BI-RAD 2 Management: Screening Mammogram of both breasts in 1 year. . Patient should continue monthly self-breast exams. A clinical breast exam by your physician is recommended on an annual basis. This exam should not preclude additional follow-up of suspicious palpable abnormalities. Note on Geno scores and lifetime risk: 1. A Geno score greater than 3% is considered moderate risk. If this is the case, consider specialist referral to assess eligibility for a risk reducing agent. 2. If overall lifetime risk for the development of breast cancer is 20% or higher, the patient may qualify for future screening with alternating mammogram and breast MRI. Electronically signed and approved by: Nicolasa Bradley M.D. Radiologist
== END | disposition home or self-care (01) ==
LOC: RADMAMWWP 08:54
PROVIDERS: ATTEND Obstetrics & Gynecology
DX: Z12.31 Encounter for screening mammogram for malignant neoplasm of breast (principal); Z78.0 Asymptomatic menopausal state; Z80.3 Family history of malignant neoplasm of breast
CPT/HCPCS: 77067

== ENCOUNTER 2022-10-08 10:35 | Emergency (ER) | payer BC, MEDICAID ==
[2022-10-08 10:40] VITALS: BP 124/80; PULSE 94; RESP 18; TEMP 98.4
--- NOTE | 2022-10-08 11:10 | ED ---
Lower Extremity Injury HPI - General Chief Complaint: Extremity Injury, Lower Stated Complaint: poss blood clot in Left Leg Time Seen by Provider: 10/08/22 10:53 Source: patient, RN notes reviewed, old records reviewed Mode of arrival: ambulatory Limitations: no limitations - History of Present Illness Initial Comments: 62-year-old female presents to the emergency room with complaints of left leg swelling and pain. States has a history of DVT in 2018 and did have a stent placed at that time. Was on eliquis for 6 months. He has not had problems si nce. Denies any chest pain or shortness of breath. Denies any injury. MD Complaint: other (left leg pain and swelling hx dvt 2018) Severity scale (1-10): 7 Treatments Prior to Arrival: other (asa) - Related Data Home Medications Medication Instructions Recorded Confirmed Ascorbic Acid [Vitamin C] 1,000 mg PO W/SUPPER 05/16/17 06/20/21 Multivitamins, Thera [Multivitamin 1 tab PO W/SUPPER 05/16/17 06/20/21 (formulary)] Aspirin EC [Ecotrin] 325 mg PO DAILY PRN 06/17/18 06/20/21 Folic Acid 1 mg PO W/SUPPER 06/17/18 06/20/21 Vitamin B Complex 1 cap PO W/SUPPER 06/17/18 06/20/21 LORazepam [Ativan] 0.5 mg PO TID PRN 10/03/18 06/20/21 Acyclovir 5% Oint [Zovirax Oint] 1 applic TOPICAL Q3H PRN 06/20/21 06/20/21 Azelastine HCl [Astelin Nasal 2 spr EA NOSTRIL BID PRN 06/20/21 06/20/21 [place]] Cholecalciferol [Vitamin D3 (25 25 mcg PO W/SUPPER 06/20/21 06/20/21 Mcg = 1000 Iu)] Ibuprofen [Motrin] 800 mg PO BID 06/20/21 06/20/21 Metaxalone [Skelaxin] 800 mg PO DAILY 06/20/21 06/20/21 Allergies Allergy/AdvReac Type Severity Reaction Status Date / Time Iodinated Contrast Media Allergy Anaphylaxis Verified 10/08/22 10:40 [Iodinated Contrast- Oral and IV Dye] loracarbef [From Lorabid] Allergy Anaphylaxis Verified 10/08/22 10:40 Penicillins Allergy "Itching Verified 10/08/22 10:40 inside" shellfish derived Allergy Anaphylaxis Verified 10/08/22 10:40 Review of Systems ROS Statement: Those systems with pertinent positive or pertinent negative responses have been documented in the HPI. ROS Other: All systems not noted in ROS Statement are negative. Past Medical History Past Medical History: Deep Vein Thrombosis (DVT) Additional Past Medical History / Comment(s): Chronic back pain, diverticulitis. History of Any Multi-Drug Resistant Organisms: None Reported Past Surgical History: Back Surgery, Section, Hysterectomy, Tonsillectomy Additional Past Surgical History / Comment(s): Hardware in back (cage/rods/screws). Stent placed in femur 2018 due to DVT. Past Anesthesia/Blood Transfusion Reactions: Previous Problems w/ Anesthesia Additional Past Anesthesia/Blood Transfusion Reaction / Comment(s): "I've been told on a few ocassions that my heart flutters quite a bit with anesthesia." Past Psychological History: Anxiety, Depression Smoking Status: Former smoker Past Alcohol Use History: Occasional Past Drug Use History: None Reported - Past Family History Mother Family Medical History: No Reported History General Exam Limitations: no limitations General appearance: alert, in no apparent distress Head exam: Present: atraumatic Eye exam: Present: normal appearance. Absent: scleral icterus, conjunctival injection, periorbital swelling Respiratory exam: Absent: respiratory distress, accessory muscle use Cardiovascular Exam: Present: regular rate Left Knee exam: Present: full ROM, tenderness (lateral aspect), full knee extension. Absent: swelling, dislocation, erythema, effusion Lower Leg exam: Present: full ROM, tenderness, swelling, palpable cord Ankle exam: Present: full ROM. Absent: tenderness, swelling Foot/Toe exam: Present: full ROM. Absent: tenderness, swelling Neurovascular tendon exam: Present: no vascular compromise. Absent: pulse deficit, abnormal cap refill, extremity cold to touch, pallor, foot drop Neurological exam: Present: alert, oriented X3 Psychiatric exam: Present: normal affect, normal mood Skin exam: Present: warm, dry, normal color. Absent: cyanosis, diaphoretic, petechiae, pallor Course Vital Signs 10/08/22 10:37 Temperature 98.4 F Pulse Rate 94 Respiratory 18 Rate Blood Pressure 124/80 O2 Sat by Pulse 97 Oximetry Medical Decision Making - Medical Decision Making Was pt. sent in by a medical professional or institution ([facility], CARDIAC EXERCISE PHYSIOLOGIST, urgent care, hospital, or [place] health care facility...) When possible be specific @ -No Did you speak to anyone other than the patient for history (EMS, parent, family, police, friend...)? What history was obtained from this source @ -No Did you review nursing and triage notes (agree or disagree)? Why? @ -I reviewed and agree with nursing and triage notes Were old charts reviewed (outside hosp., previous admission, EMS record, old EKG, old radiological studies, urgent care reports/EKG's, [place] health care facility records)? Report findings @ -No old charts were reviewed Differential Diagnosis (chest pain, altered mental status, abdominal pain women, abdominal pain men, vaginal bleeding, weakness, fever, dyspnea, syncope, headache, dizziness, GI bleed, back pain, seizure, CVA, palpatations, mental health, musculoskeletal)? @ -DVT, cellulitis, lymphedema, vascular congestion, congestive heart failure, effusion, this is not an all inclusive list EKG interpreted by me (3pts min.). @ -n/a X-rays interpreted by me (1pt min.). @ -None done CT interpreted by me (1pt min.). @ -None done U/S interpreted by me (1pt. min.). @ -yes normal blood flow no evidence of DVT What testing was considered but not performed or refused? (CT, X-rays, U/S, labs)? Why? @ -None What meds were considered but not given or refused? Why? @ -None Did you discuss the management of the patient with other professionals (professionals i.e. , [facility], CARDIAC EXERCISE PHYSIOLOGIST, lab, RT, psych nurse, psychiatric social worker, nursery school teacher, teacher, tax compliance officer, case resource manager)? Give summary @ -No Was smoking cessation discussed for >3mins.? @ -No Was critical care preformed (if so, how long)? @ -No Were there social determinants of health that impacted care today? How? (Homelessness, low income, unemployed, alcoholism, drug addiction, transportation, low edu. Level, literacy, decrease access to med. care, nursing home, rehab)? @ -No Was there de-escalation of care discussed even if they declined (Discuss DNR or withdrawal of care, Hospice)? DNR status @ -No What co-morbidities impacted this encounter? (DM, HTN, Smoking, COPD, CAD, Cancer, CVA, ARF, Chemo, Hep., AIDS, mental health diagnosis, sleep apnea, morbid obesity)? @ -History of DVT in 2018, chronic back pain, anxiety, depression Was patient admitted / discharged? Hospital course, mention meds given and route, prescriptions, significant lab abnormalities, going to OR and other pertinent info. @ -discharged 62-year-old female presents to the emergency room with complaints of left leg swelling and pain, concerned for DVT. States has a history of DVT in 2018 and did have a stent placed at that time. Was on eliquis for 6 months. She has not had problems since. Denies any chest pain or shortness of breath. Denies any injury. Has been able to ambulate. Vital signs stable, pulse ox 97%. Pedal pulses are present and equal bilaterally. Venous congestion noted left lower extremity. Full range of motion. Ultrasound of the left lower extremity shows no evidence of DVT. Patient was offered pain medication and declined. Patient was directed to wear compression socks. States that she does have an but has not been wearing them. Discomfort and swelling likely from venous congestion. She was also directed to follow up with her primary care doctor Clarence this week. Return to the emergency room with any new or concerning symptoms especially chest pain or shortness of breath. She is agreeable to this plan of care. Case discussed with Dr. Hayes Undiagnosed new problem with uncertain prognosis? @ -No Drug Therapy requiring intensive monitoring for toxicity (Heparin, Nitro, Insulin, Cardizem)? @ -No Were any procedures done? @ -No Diagnosis/symptom? @ -Left leg pain Acute, or Chronic, or Acute on Chronic? @ -Acute Uncomplicated (without systemic symptoms) or Complicated (systemic symptoms)? @ -Uncomplicated Side effects of treatment? @ -No Exacerbation, Progression, or Severe Exacerbation? @ -No Poses a threat to life or bodily function? How? (Chest pain, USA, CT, pneumonia, PE, COPD, DKA, ARF, appy, cholecystitis, CVA, Diverticulitis, Homicidal, Suicidal, threat to staff... and all critical care pts) @ -No Disposition Clinical Impression: Pain in left lower leg Disposition: HOME SELF-CARE Condition: Good Instructions (If sedation given, give patient instructions): Leg Pain (ED) Additional Instructions: I recommend Tylenol and Motrin as needed for pain and discomfort. Compression socks and follow-up with your primary care doctor this week. Is patient prescribed a controlled substance at d/c from ED?: No Referrals: Iain Lima MD [Primary Care Provider] - 1-2 days Time of Disposition: 12:48
--- NOTE | 2022-10-08 12:41 | US ---
EXAMINATION TYPE: US venous doppler duplex LE LT DATE OF EXAM: 10/08/2022 12:36 PM COMPARISON: 06/20/2021 CLINICAL INDICATION: Female, 62 years old with history of leg pain and swelling hx dvt; pain around L t knee, hx of DVT in 2018 after vein ablation. SVT in SSV and GSV extending to CFV SIDE PERFORMED: Left TECHNIQUE: The lower extremity deep venous system is examined utilizing real time linear array sonog luciana with graded compression, doppler sonography and color-flow sonography. VESSELS IMAGED: Common Femoral Vein Deep Femoral Vein Greater Saphenous Vein * Femoral Vein Popliteal Vein Small Saphenous Vein * Proximal Calf Veins (* superficial vessels) Left Leg: Negative for DVT IMPRESSION: Grayscale, color doppler, spectral doppler imaging performed of the deep veins of the lo wer extremities. There is normal flow, compressibility, vascular waveforms.
== END 2022-10-08 13:45 | disposition home or self-care (01) ==
LOC: EC 10:35
DX: M79.605 Pain in left leg (principal); I47.1 Supraventricular tachycardia; F41.9 Anxiety disorder, unspecified; F32.A Depression, unspecified; Z87.891 Personal history of nicotine dependence; Z79.82 Long term (current) use of aspirin; Z79.899 Other long term (current) drug therapy; Z91.041 Radiographic dye allergy status; Z88.0 Allergy status to penicillin; Z91.013 Allergy to seafood; Z88.8 Allergy status to other drugs, medicaments and biological substances; Z88.1 Allergy status to other antibiotic agents
CPT/HCPCS: 99283

== ENCOUNTER → 2023-11-20 | Outpatient (CLI) | payer OTHER ==
--- NOTE | 2023-11-21 12:32 | MM ---
Reason for Exam: Screening (asymptomatic). Last mammogram was performed 1 year(s) and 4 month(s) ago. Patient History: Menarche at age 12. First Full-Term at age 19. Left ovary removed at age 45. Right ovary removed at age 45. Hysterectomy at age 45. Postmenopausal. Patient has history of breast feeding. Estrogen for 1 year, 3 months, from age 48 until age 49. Paternal grandmother had breast cancer. Maternal grandmother had breast cancer, age 60. Maternal cousin had breast cancer, age 42. Paternal cousin had breast cancer. Sister had breast cancer, age 61. Risk Values: Geno 5 year model risk: 2.9%. NCI Lifetime model risk: 12.1%. Prior Study Comparison: 12/15/2019 Bilateral Screening Mammogram, [facility]. 02/17/2021 Bilateral Screening Mammogram, [facility]. 08/02/2022 Bilateral MG screening mammo w CAD, [facility]. Tissue Density: There are scattered areas of fibroglandular density. Findings: Analyzed By CAD. There is no suspicious group of microcalcifications or new suspicious mass in either breast. Overall Assessment: Negative, BI-RAD 1 Management: Screening Mammogram of both breasts in 1 year. . Patient should continue monthly self-breast exams. A clinical breast exam by your physician is recommended on an annual basis. This exam should not preclude additional follow-up of suspicious palpable abnormalities. Note on Geno scores and lifetime risk: 1. A Geno score greater than 3% is considered moderate risk. If this is the case, consider specialist referral to assess eligibility for a risk reducing agent. 2. If overall lifetime risk for the development of breast cancer is 20% or higher, the patient may qualify for future screening with alternating mammogram and breast MRI. [facility], , 11/21/2023 12:29 PM. Electronically signed and approved by: Jerel Becerril M.D. Radiologis
== END | disposition home or self-care (01) ==
LOC: RADMAMWWP 10:53
PROVIDERS: ATTEND Family Medicine
DX: Z12.31 Encounter for screening mammogram for malignant neoplasm of breast
CPT/HCPCS: 77067

== ENCOUNTER → 2023-12-18 | Outpatient (CLI) | payer OTHER ==
[2023-12-18 15:01] LABS: Basophils # (A) 0.03 X 10*3/uL (0.00-0.10); Basophils % (A) 0.4 %; Eosinophils # (A) 0.09 X 10*3/uL (0.04-0.35); Eosinophils % (A) 1.2 %; HCT 44.4 % (37.2-46.3); HGB 14.7 g/dL (12.0-15.0); Lymphocytes # (A) 1.74 X 10*3/uL (0.90-5.00); Lymphocytes % (A) 23.5 %; MCH 32.8 pg (27.0-32.0); MCHC 33.1 g/dL (32.0-37.0); MCV 99.1 FL (80.0-97.0); Mean Platelet Volume 9.1 FL (9.5-12.2); Monocytes # (A) 0.53 X 10*3/uL (0.20-1.00); Monocytes % (A) 7.2 %; NRBC Per 100 WBC 0 X 10*3/uL (0.00-0.01); Neutrophils # (A) 4.98 X 10*3/uL (1.80-7.70); Neutrophils % (A) 67.2 %; Platelet Count 302 X 10*3/uL (140-440); RBC 4.48 X 10*6/uL (4.10-5.20); RDW 12.3 % (11.5-14.5); WBC 7.41 X 10*3/uL (4.50-10.00)
[2023-12-18 15:27] LABS: ALT 39 U/L (8-44); AST 32 U/L (13-35); Albumin 4.4 g/dL (3.8-4.9); Alkaline Phosphatase 76 U/L (41-126); BUN/Creat Ratio 28.12 Ratio (12.00-20.00); Blood Urea Nitrogen 22.5 mg/dL (9.0-27.0); Calcium 9.5 mg/dL (8.7-10.3); Carbon Dioxide 23.7 mmol/L (21.6-31.8); Chloride 106 mmol/L (96-109); Chol/HDL Ratio 2.91 Ratio; Globulin 2.1 g/dL (1.6-3.3); Glucose 92 mg/dL (70-110); LDL Cholesterol,Calculated 117.5 mg/dL (0.0-131.0); Potassium 4.8 mmol/L (3.5-5.5); Sodium 141 mmol/L (135-145); Total Bilirubin 0.3 mg/dL (0.3-1.2); Total Protein 6.5 g/dL (6.2-8.2); VLDL Calculation 19.72 mg/dL (5.00-40.00)
[2023-12-18 15:28] LABS: T4, Free (Free Thyroxine) 1.02 ng/dL (0.80-1.80)
== END | disposition home or self-care (01) ==
LOC: LABWHC1 08:32
PROVIDERS: ATTEND Family Medicine
DX: Z00.00 Encounter for general adult medical examination without abnormal findings (principal)
CPT/HCPCS: 36415; 80053; 80061; 84439; 84443; 85025